=== PATIENT | female | born 1940 | race Caucasian/White ===

== ENCOUNTER 2016-07-09 13:29 | Inpatient (IN) | payer MEDICARE ==
[~2016-07-09] VITALS: Ht 154.9 cm; Wt 83.9 kg
[2016-07-10] MEDS ORDERED: CALC1TAB16 PO (09:44)
[2016-07-10] MEDS ORDERED: VITA10007 PO (09:44)
[2016-07-10] MEDS ORDERED: OMEG100010 PO (09:44)
[2016-07-10] MEDS ORDERED: FERR150C PO (09:44)
[2016-07-10] MEDS ORDERED: ATOR10TA15 PO (09:44)
[2016-07-29] MEDS ORDERED: SODIUM CHLORID 0.9% 500 ML IV SCH (11:00)
[2016-07-29] MEDS ORDERED: LACTATED RINGER'S 1000 ML IV SCH (11:00)
[2016-07-29 11:14] VITALS: BP 144/73; PULSE 60; RESP 20; TEMP 98.2; O2SAT 97
[2016-07-29] MEDS ORDERED: INSULIN HUMAN REGULAR 1,000 UNITS/10 ML VIAL SQ PRN (11:15)
[2016-07-29] MEDS ORDERED: VANCOMYCIN 1000 MG/NS 250 ML (for <70 kg) IV SCH ×2 (11:15)
[2016-07-29] MEDS ORDERED: METOPROLOL TARTRATE 25 MG TAB PO PRN (11:15)
[2016-07-29] MEDS ORDERED: POVIDONE IODINE 7.5% SCRUB 118 ML BOTTLE TOP SCH (11:15)
[2016-07-29] MEDS ORDERED: ceFAZolin 2 GM PREMIX 50 ML IV SCH (11:15)
[2016-07-29] MEDS ORDERED: DEXAMETHASONE SOD PHOS 20 MG/5 ML VIAL IV SCH (11:15)
[2016-07-29] MEDS ORDERED: MIDAZOLAM HCL 5 MG/5 ML VIAL ONE (11:43)
[2016-07-29] MEDS ORDERED: SODIUM CHLORIDE 0.9% IV SCH ×2 (12:00→16:00)
[2016-07-29] MEDS ORDERED: TRANEXAMIC ACID IV SCH ×2 (12:00→16:00)
[2016-07-29] MEDS ORDERED: ROPIVACAINE PERI-ARTICULAR INJECTION. PERIART SCH ×5 (12:00)
[2016-07-29] MEDS ORDERED: LACTATED RINGER'S 1000 ML INJ 1,000 ML IV ONE (12:55)
[2016-07-29] MEDS ORDERED: ePHEDrine/NS 25 MG/5 ML SYR IV ONE (12:55)
[2016-07-29] MEDS ORDERED: PROPOFOL 200 MG/20 ML AMP IV ONE (12:55)
[2016-07-29] MEDS: GENTAMICIN SULFATE 80 MG/2 ML VIAL ONE ×2 (13:15→13:28)
[2016-07-29] MEDS ORDERED: ACETAMINOPHEN 1000 MG/100 ML VIAL IV ONE (14:11)
--- NOTE | 2016-07-29 14:25 | PD.OP ---
cc: Souleymane Vergara MD Operative Report Date of Surgery: Jul 29, 2016 Preoperative Diagnosis: Right knee severe osteoarthritis Postoperative Diagnosis: Same Procedure: Right total knee arthroplasty Anesthesia: Spinal and adductor canal block Surgeon: Souleymane Vergara Tomb Maker Helper(s): BETH Ferrara The surgical procedure was assisted by my Advanced Registered Nurse Practitioner. My BALLASTER presence was necessary throughout this case for the manipulation and positioning of the surgical extremity. My BALLASTER was assisting me throughout the duration of this procedure. The skill set of an Advance Registered Nurse Practitioner was medically necessary to complete this procedure. During the surgical case, the surgical services asst was working at the back table and the Advance Registered Nurse Practitioner was directly assisting me. Operation and Findings: IMPLANTS: DePuy Attune: Patella: size 32. Femur, posterior stabilized size 5. Tibia, rotating platform size 4. Tibial insert, rotating platform, posterior stabilized size 8 mm thickness. ESTIMATED BLOOD LOSS: 150 cc TOURNIQUET TIME: 32 minutes at 250 mmHg pressure. JUSTIFICATION FOR PROCEDURE: The patient has end-stage osteoarthritis to the knee. There is an attached conservative measures pathway form in the chart that describes the nonoperative measures that were undertaken prior to consideration of surgical management. The patient understood the risks and benefits of surgical management. See my office notes for further details PROCEDURE: The patient was brought back to the operative theatre. Adequate anesthesia was obtained. The patient received intravenous vancomycin and Ancef. The lower extremity was prepped and draped in the usual sterile fashion.The leg was exsanguinated, the tourniquet was raised. A standard anterior incision was performed followed by medial parapatellar arthrotomy was performed. End-stage arthritis was identified. Osteotomy of the patella was performed. We drilled holes for the patella. We trialed the patella component. We placed an intramedullary guide into the distal femur. We ultimately resected 14 mm off of the distal femur in 5 degrees of valgus. The remnants of the ACL and PCL were resected. Osteotomy of the proximal tibia was performed, resecting 5 mm off of the medial side. This was done with 3 degrees of posterior slope using an extramedullary guide. The distal end of the guide was placed in the mid aspect of the ankle. The femur was sized, and four chamfer cuts were completed in 3 of external rotation. We then cut the central box in the distal femur to replace the PCL. We resected the remnants of the menisci and removed osteophytes off of the femur and tibia. We then trialed the knee. We punched the tibia for the keel, and then used standard technique to cement in components. Excess cement was removed. We trialed the knee again and the final polyethylene thickness was chosen to provide extension to 0 degrees, and flexion of 140 degrees to gravity. The ligaments were appropriately balanced. Lateral release was necessary to obtain excellent patellofemoral tracking. The tourniquet was released and adequate hemostasis was obtained. An intra- articular injection of a ropivacaine cocktail was injected. The posterior knee was inspected for excess cement, which was removed. The final polyethylene was put into position after thorough irrigation. We then closed deep fascia with a #2 Stratafix followed by skin with 2-0 Vicryl followed by kathy. Postop plan is to weight-bear as tolerated. DVT prophylaxis will be performed with Kevin, SCOOTER talbert, early mobilization, and Lovenox followed by aspirin. Souleymane Vergara MD Jul 29, 2016 14:25
[2016-07-29] MEDS ORDERED: ASPI325T PO (14:27)
[2016-07-29] MEDS ORDERED: ENOX40P SQ (14:27)
[2016-07-29] MEDS ORDERED: NORC5TAB PO (14:27)
[2016-07-29] MEDS ORDERED: ONDANSETRON HCL 4 MG/2 ML VIAL IVP PRN (14:30)
[2016-07-29] MEDS ORDERED: MAGNESIUM HYDROXIDE SUSP 30 ML CUP PO PRN (14:30)
[2016-07-29] MEDS ORDERED: NALOXONE HCL 0.4 MG/ML AMP IV PRN (14:30)
[2016-07-29] MEDS ORDERED: ACETAMINOPHEN/HYDROcodone 325 MG/5 MG TAB PO PRN (14:30)
[2016-07-29] MEDS ORDERED: ALUMINUM/MAGNESIUM/SIMETH 30 ML CUP PO PRN (14:30)
[2016-07-29] MEDS ORDERED: BISACODYL 10 MG SUPP PR PRN (14:30)
[2016-07-29] MEDS ORDERED: Post-op Orders (for Pharmacy) MISC XX ONE (14:30)
[2016-07-29] MEDS ORDERED: MORPHINE SULFATE 4 MG/ML INJ IV PUSH PRN (14:30)
[2016-07-29] MEDS ORDERED: SODIUM CHLORIDE 0.9% FLUSH 5 ML FLUSH IVF PRN (14:30)
[2016-07-29] MEDS ORDERED: diphenhydrAMINE HCL 50 MG/ML VIAL IV PRN (14:30)
[2016-07-29] MEDS ORDERED: BUPIVACAINE LIPOSOME PF 1.3% 20 ML VIAL ONE (14:43)
[2016-07-29] MEDS ORDERED: MIDAZOLAM HCL 2 MG/2 ML VIAL ONE (14:50)
[2016-07-29] MEDS ORDERED: *morphine SULFATE 8 MG/ML PERIprocedure ONLY ONE ×2 (14:52→15:05)
--- NOTE | 2016-07-29 15:09 | HHI.DCPOC ---
Discharge Care Plan Diagnosis: (1) Primary localized osteoarthrosis, lower leg (2) Status post total knee replacement, right Your Health Problems Are: Difficulty with ADL Goals to Promote Your Health * To prevent worsening of your condition and complications * To maintain your health at the optimal level Directions to Meet Your Goals Take your medications as prescribed Follow your dietary instruction Follow activity as directed Keep your appointments as scheduled Take your immunizations and boosters as scheduled If your symptoms worsen call your PCP, if no PCP go to Urgent Care Center or Emergency Room Smoking is Dangerous to Your Health. Avoid second hand smoke Call the 24-hour hour crisis hotline for domestic abuse at Chip Prieto Jul 29, 2016 15:09
--- NOTE | 2016-07-29 15:10 | HHI.FF ---
Face to Face Verification Diagnosis: (1) Primary localized osteoarthrosis, lower leg (2) Status post total knee replacement, right Physical Therapy Gait training, Transfer training, bed to chair Knee: Total knee Right LE Weight Bearing: WB as tolerated Right LE Range of Motion: Active ROM Nursing Nursing: Eugenia teaching, Dressing changes Dressing Changes: Daily dressing change I have seen patient Nathaly Anderson on 07/29/16. My clinical findings support the need for the requested home health care services because: Limited ability to care for self High risk of falls I certify that my clinical findings support that this patient is homebound because: Post-op weakness Unsteady gait/balance Chip Prieto Jul 29, 2016 15:10
[2016-07-29] MEDS ORDERED: COMMODE 3-IN-11 MIS (15:11)
[2016-07-29] MEDS ORDERED: CPMMACHINE (15:11)
[2016-07-29] MEDS ORDERED: WALKER WHEELS/F1 MIS (15:11)
[2016-07-29] MEDS ORDERED: DO NOT ADM ANY ANTICOAGULANT DRUGS XX PRN (15:30)
[2016-07-29] MEDS: SODIUM CHLOR 0.9% 1000 ML INJ 1,000 ML IV SCH ×2 (15:30→22:35)
[2016-07-29] MEDS ORDERED: *HYDROmorphone PF 1 MG VIAL PERIprocedural Use ONLY ONE (15:31)
--- NOTE | 2016-07-29 15:32 | RADRPT ---
EXAM DATE/TIME: 07/29/2016 14:54 [facility] COMPARISON: No previous studies available for comparison. INDICATIONS : Status post op right total knee arthroplasty. MEDICAL HISTORY : None. SURGICAL HISTORY : None. ENCOUNTER: Subsequent ACUITY: 1 day PAIN SCORE: Non-responsive. LOCATION: Left Knee FINDINGS: Right total knee arthroplasty is present. The hardware is intact. Alignment is anatomic. Skin kathy are noted ventrally. CONCLUSION: Satisfactory appearance post right TKA Deandre Lopez MD on July 29, 2016 at 15:30 Board Certified Radiologist. This report was verified electronically.
[2016-07-29] MEDS ORDERED: ENALAPRILAT 1.25 MG/ML VIAL IV PUSH PRN (16:30)
[2016-07-29] MEDS ORDERED: RESP: ALBUTEROL 2.5 MG/IPRATROPIUM 0.5 MG NEB (PRN) NEB (16:30)
--- NOTE | 2016-07-29 16:31 | PD.CONS ---
HPI Service [facility] Consult Requested By Orthopedic surgery Reason for Consult Medical management Primary Care Physician Roxana Varela MD Diagnoses: History of Present Illness 76 year-old female with a history of hyperlipidemia, severe right knee osteoarthritis who despite medical management and several cortisone shots to the knee continue to have severe right knee pain affecting her daily living of activity including ambulation, was taken to the operating room today and underwent Right total knee arthroplasty. Patient was seen in PACU, and during my exam denies any chest pain or shortness of breath. Vitals stable. Review of Systems Other 12 systems reviewed and are negative except for the one mentioned in the history of present illness Past Family Social History Allergies: Coded Allergies: Codeine (Verified Adverse Reaction, Severe, NAUSEA, 07/29/16) Past Medical History Severe right knee osteoarthritis Hyperlipidemia Past Surgical History Right total knee arthroplasty 07/29/16 Ruptured ovarian cyst LAP-BAND Right ankle/foot surgeries Reported Medications See EMR Family History Noncontributory Social History Denies any alcohol, tobacco and illicit drug intake Physical Exam Vital Signs Vital Signs Date Time Temp Pulse Resp B/P Pulse Ox O2 Delivery O2 Flow Rate FiO2 07/29/16 16:00 68 15 138/69 95 Nasal Cannula 2 07/29/16 15:45 67 15 135/68 97 Nasal Cannula 3 07/29/16 15:30 67 15 137/70 96 Nasal Cannula 3 07/29/16 15:15 69 15 144/68 98 Nasal Cannula 4 07/29/16 15:00 71 14 139/70 96 Nasal Cannula 4 07/29/16 14:45 97.5 70 14 137/68 95 Nasal Cannula 4 07/29/16 11:14 98.2 60 20 144/73 97 Physical Exam GENERAL: This is a well-nourished, well-developed patient, in no apparent distress. SKIN: No rashes, ecchymoses or lesions. Cool and dry. HEAD: Atraumatic. Normocephalic. No temporal or scalp tenderness. EYES: Pupils equal round and reactive. Extraocular motions intact. No scleral icterus. No injection or drainage. ENT: Nose without bleeding, purulent drainage or septal hematoma. Throat without erythema, tonsillar hypertrophy or exudate. Uvula midline. Airway patent. NECK: Trachea midline. No JVD or lymphadenopathy. Supple, nontender, no meningeal signs. CARDIOVASCULAR: Regular rate and rhythm without murmurs, gallops, or rubs. RESPIRATORY: Clear to auscultation. Breath sounds equal bilaterally. No wheezes , rales, or rhonchi. GASTROINTESTINAL: Abdomen soft, non-tender, nondistended. No hepato-splenomegaly , or palpable masses. No guarding. MUSCULOSKELETAL: Extremities without clubbing, cyanosis, or edema. Right knee repair, brace in place-neurovascular intact NEUROLOGICAL: Awake and alert. Cranial nerves II through XII intact. Motor and sensory grossly within normal limits. Five out of 5 muscle strength in all muscle groups. Normal speech. Laboratory Laboratory Tests Test 07/29/16 11:00 Blood Type A POSITIVE Antibody Screen NEGATIVE Blood Bank Comment Imaging Last Impressions Knee X-Ray 07/29/16 1422 Signed Impressions: Service Date/Time: Wednesday, July 29, 2016 14:54 - CONCLUSION: Satisfactory appearance post right TKA Deandre Lopez MD Assessment and Plan Assessment and Plan 76-year-old female with Right severe knee osteoarthritis: Status post Right total knee arthroplasty , management per orthopedic surgery and continue current postop care including IV antibiotics, pain management. PT consult to treat and eval. Lovenox for DVT prophylaxis Hyperlipidemia: Resume Lipitor DVT prophylaxis: Lovenox Thank you for this consultation Code Status Full code Discussed Condition With Patient Zhen Armstrong MD Jul 29, 2016 16:31
[2016-07-29 17:42] VITALS: BP 131/65; PULSE 76; RESP 17; TEMP 95.5; O2SAT 98
[2016-07-29 20:09] VITALS: BP 113/55; PULSE 71; RESP 18; TEMP 96; O2SAT 94
[2016-07-29] MEDS: SODIUM CHLORIDE 0.9% FLUSH 5 ML FLUSH IVF SCH (20:36)
[2016-07-29] MEDS ORDERED: ZOLPIDEM TARTRATE 5 MG TAB PO PRN (21:00)
[2016-07-29] MEDS ORDERED: ATORVASTATIN 10 MG TAB PO SCH (21:00)
[2016-07-29] MEDS: ACETAMINOPHEN/HYDROcodone 325 MG/5 MG TAB PO PRN (22:48)
[2016-07-30 00:08] VITALS: BP 103/50; PULSE 72; RESP 17; TEMP 97.5; O2SAT 96
[2016-07-30 04:07] VITALS: BP 102/58; PULSE 62; RESP 17; TEMP 97; O2SAT 95
[2016-07-30] MEDS: ACETAMINOPHEN/HYDROcodone 325 MG/5 MG TAB PO PRN ×3 (05:35→15:58)
[2016-07-30 07:02] LABS: HEMATOCRIT 36.2 % (35.0-46.0); MEAN CELL VOLUME 96.3 FL (80.0-100.0); MEAN CORPUSCULAR HEMOGLOBIN 32.7 PG (27.0-34.0); MEAN CORPUSCULAR HGB CONC 33.9 % (32.0-36.0); PLATELET COUNT 209 TH/MM3 (150-450); RED BLOOD COUNT 3.76 MIL/MM3 (4.00-5.30); RED CELL DISTRIBUTION WIDTH 13.1 % (11.6-17.2); REVIEW FLAG FINAL; WHITE BLOOD COUNT 10.7 TH/MM3 (4.0-11.0)
[2016-07-30 07:26] LABS: BICARBONATE 25.4 MEQ/L (21.0-32.0); POTASSIUM 3.9 MEQ/L (3.5-5.1)
[2016-07-30] MEDS ORDERED: DEXAMETHASONE SOD PHOS 20 MG/5 ML VIAL IV ONE (07:45)
[2016-07-30 08:00] VITALS: BP 103/55; PULSE 52; RESP 18; TEMP 97.5; O2SAT 94
[2016-07-30] MEDS: SODIUM CHLORIDE 0.9% FLUSH 5 ML FLUSH IVF SCH (09:00)
[2016-07-30 12:00] VITALS: BP 136/63; PULSE 62; RESP 20; TEMP 97.8; O2SAT 95
--- NOTE | 2016-07-30 12:50 | PD.ORT.PN ---
Subjective Post Op Day #: 1 Subjective Remarks The patient is OOB in chair with little to no pain to the knee. Patient is voiding and ambulatory. Patient requesting to go home today. Objective Vitals Vital Signs Date Time Temp Pulse Resp B/P Pulse Ox O2 Delivery O2 Flow Rate FiO2 07/30/16 08:00 97.5 52 18 103/55 94 07/30/16 04:07 97.0 62 17 102/58 95 07/30/16 00:08 97.5 72 17 103/50 96 07/29/16 23:48 20 07/29/16 20:09 96.0 71 18 113/55 94 07/29/16 17:42 95.5 76 17 131/65 98 07/29/16 17:15 97.6 70 16 140/75 95 Room Air 07/29/16 17:00 69 16 139/72 94 Room Air 07/29/16 16:45 68 15 138/75 93 Room Air 07/29/16 16:30 71 15 143/74 98 Nasal Cannula 2 07/29/16 16:15 70 15 141/72 97 Nasal Cannula 2 07/29/16 16:00 68 15 138/69 95 Nasal Cannula 2 07/29/16 15:45 67 15 135/68 97 Nasal Cannula 3 07/29/16 15:30 67 15 137/70 96 Nasal Cannula 3 07/29/16 15:15 69 15 144/68 98 Nasal Cannula 4 07/29/16 15:00 71 14 139/70 96 Nasal Cannula 4 07/29/16 14:45 97.5 70 14 137/68 95 Nasal Cannula 4 I/O 07/29/16 07/29/16 07/29/16 07/30/16 07/30/16 07/30/16 07:00 15:00 23:00 07:00 15:00 23:00 Intake Total 1200 ml 560 ml 1648 ml Output Total 1000 ml 550 ml 700 ml Balance 200 ml 10 ml 948 ml Intake Oral 360 ml 360 ml IV Total 200 ml 1288 ml Other 1200 ml Output Urine Total 800 ml 550 ml 700 ml Estimated Blood Loss 200 ml # Bowel Movements 0 0 Result Diagram: 07/30/16 0617 07/30/16 0617 Imaging Last 24 hours Impressions Knee X-Ray 07/29/16 1422 Signed Impressions: Service Date/Time: Friday, July 29, 2016 14:54 - CONCLUSION: Satisfactory appearance post right TKA Deandre Lopez MD Procedures Right TKA Objective Remarks The patient's dressing was changed with scant serosanguineous drainage. Incision is well approximated with surgical clips intact. No redness or s/s of infection. No calf tenderness or swelling. + SILT. EHL/TA/G intact. 2+ pedal pulse. Assessment & Plan Ortho Post Op Day #: 1 Problem List: Assessment and Plan POD #1: Right TKA 1. WBAT RLE 2. Lovenox for DVT prophylaxis 3. Ice to the right knee PRN 4. Stable for discharge home with home health today. Chip Prieto Jul 30, 2016 12:50
--- NOTE | 2016-07-30 12:52 | HHI.PR ---
Subjective Remarks Patient seen and examined No acute event overnight Reports significant improvement of right knee pain Looking forward discharge home possible today Objective Vitals Vital Signs Date Time Temp Pulse Resp B/P Pulse Ox O2 Delivery O2 Flow Rate FiO2 07/30/16 12:00 97.8 62 20 136/63 95 07/30/16 08:00 97.5 52 18 103/55 94 07/30/16 04:07 97.0 62 17 102/58 95 07/30/16 00:08 97.5 72 17 103/50 96 07/29/16 23:48 20 07/29/16 20:09 96.0 71 18 113/55 94 07/29/16 17:42 95.5 76 17 131/65 98 07/29/16 17:15 97.6 70 16 140/75 95 Room Air 07/29/16 17:00 69 16 139/72 94 Room Air 07/29/16 16:45 68 15 138/75 93 Room Air 07/29/16 16:30 71 15 143/74 98 Nasal Cannula 2 07/29/16 16:15 70 15 141/72 97 Nasal Cannula 2 07/29/16 16:00 68 15 138/69 95 Nasal Cannula 2 07/29/16 15:45 67 15 135/68 97 Nasal Cannula 3 07/29/16 15:30 67 15 137/70 96 Nasal Cannula 3 07/29/16 15:15 69 15 144/68 98 Nasal Cannula 4 07/29/16 15:00 71 14 139/70 96 Nasal Cannula 4 07/29/16 14:45 97.5 70 14 137/68 95 Nasal Cannula 4 I/O 07/29/16 07/29/16 07/29/16 07/30/16 07/30/16 07/30/16 07:00 15:00 23:00 07:00 15:00 23:00 Intake Total 1200 ml 560 ml 1648 ml Output Total 1000 ml 550 ml 700 ml Balance 200 ml 10 ml 948 ml Intake Oral 360 ml 360 ml IV Total 200 ml 1288 ml Other 1200 ml Output Urine Total 800 ml 550 ml 700 ml Estimated Blood Loss 200 ml # Bowel Movements 0 0 Result Diagram: 07/30/16 0617 07/30/16 0617 Imaging Last Impressions Knee X-Ray 07/29/16 1422 Signed Impressions: Service Date/Time: Friday, July 29, 2016 14:54 - CONCLUSION: Satisfactory appearance post right TKA Deandre Lopez MD Objective Remarks GENERAL: NAD and sitting in a chair SKIN: Warm and dry. HEAD: Normocephalic. EYES: No scleral icterus. No injection or drainage. NECK: Supple, trachea midline. No JVD or lymphadenopathy. CARDIOVASCULAR: Regular rate and rhythm without murmurs, gallops, or rubs. RESPIRATORY: Breath sounds equal bilaterally. No accessory muscle use. GASTROINTESTINAL: Abdomen soft, non-tender, nondistended. MUSCULOSKELETAL: No cyanosis, or edema. Right knee repair, dressing in place- neurovascular intact BACK: Nontender without obvious deformity. No CVA tenderness. A/P Assessment and Plan 76-year-old female with Right severe knee osteoarthritis: Status post Right total knee arthroplasty , management per orthopedic surgery and continue current postop care including pain management. PT consult to treat and eval. Lovenox for DVT prophylaxis Hyperlipidemia: on Lipitor DVT prophylaxis: Lovenox Discharge Planning Discharge per orthopedic surgery Zhen Armstrong MD Jul 30, 2016 12:52
[2016-07-30] MEDS ORDERED: ENOX40P SQ (13:02)
[2016-07-30 13:17] VITALS: O2SAT 97
[2016-07-30] MEDS ORDERED: ENOXAPARIN SODIUM 40 MG/0.4 ML SYRINGE SQ SCH (14:00)
[2016-07-30] MEDS ORDERED: MULTIVITAMINS/MINERALS THERAPEUTIC TAB PO SCH (21:00)
[2016-07-30] MEDS ORDERED: DOCUSATE SODIUM 100 MG CAP PO SCH (21:00)
--- NOTE | 2016-08-02 21:17 | HHI.DS ---
Discharge Summary Admission Date Jul 29, 2016 at 10:21 Discharge Date: Jul 30, 2016 Admitting Diagnosis Primary localized OA, lower leg Status post total knee replacement, right Diagnosis: (1) Primary localized osteoarthrosis, lower leg Diagnosis: Principal (2) Status post total knee replacement, right Diagnosis: Principal Procedures Right TKA Brief History This is a 76 year old female patient with severe OA of the right knee CBC/BMP: 07/30/16 0617 07/30/16 0617 PE at Discharge The patient's dressing was changed with scant serosanguineous drainage. Incision is well approximated with surgical clips intact. No redness or s/s of infection. No calf tenderness or swelling. + SILT. EHL/TA/G intact. 2+ pedal pulse. Hospital Course The patient was admitted to the hospital for severe OA of the right knee to have a right total knee arthroplasty. The patient's surgery went well without complication. The patient had good pain management with oral medication. The patient was WBAT. The patient tolerated a normal diet. The patient was discharged home with home health and will f/u with Dr. Vergara in 1-2 weeks. Pt Condition on Discharge: Stable Discharge Disposition: Disch w/ Home Health Serv Discharge Instructions Diet Instructions: As Tolerated, No Restrictions Activities You Can Perform: Weight Bearing as Ailyn Activities to Avoid: Strenuous Activity Follow up Referrals: Orthopedics with Souleymane Vergara MD SN[facility]/ with Nurse oncology pharmacist [phone] New Medications: Commode 3-in-1 (Commode 3-in-1) 1 Mis Mis 1 EA .ROUTE DIRECTED #1 Ref 0 EA CPM-Continuous Passive Motion Machine (CPM-Continuous Passive Motion Machine) 1 Ea Device 1 EA .ROUTE DIRECTED #1 Ref 0 EA Enoxaparin Inj (Lovenox Inj) 40 Mg/0.4 Ml Syr 40 MG SQ DAILY Blood Clot Prevention #21 Ref 0 SYRINGE Hydrocodone-Acetaminophen ([place]) 5-325 mg Tab 1-2 TAB PO Q4H PRN PAIN #60 Ref 0 TAB Walker with Front Wheels (Walker with Front Wheels) 1 Mis Mis 1 EA .ROUTE DIRECTED #1 Ref 0 EA Continued Medications: Ascorbic Acid (Vitamin C) 1,000 Mg Tab 1000 MG PO DAILY Nutritional Supplement Ref 0 TAB Atorvastatin (Atorvastatin) 10 Mg Tab 10 MG PO HS Cholesterol Management #30 Ref 0 TAB Calcium Citrate-Vitamin D (Calcium Citrate-Vitamin D) 315-200 Mg-Unit Tab 2 TAB PO TID Calcium Supplement Ref 0 TAB Polysaccharide Iron Complex (Ferrex 150) 150 Mg Cap 1 CAP PO MO,WE,FR Discontinued Medications: [place]-3 Fatty Acids ([place] 3 1000 mg) 1 Cap Cap 1 CAP PO BID Chip Prieto Aug 02, 2016 21:17
== END 2016-07-30 16:19 | disposition home health service (06) | DRG 470 ==
LOC: HSDI 07-29 10:21 → N06B 07-29 17:37
PROVIDERS: ADMIT Orthopaedic Surgery; ATTEND Orthopaedic Surgery
PROC: 3E0T3CZ (ICD-10-PCS; 2016-07-29)
PROC: 0SRC0J9 Replacement of Right Knee Joint with Synthetic Substitute, Cemented, Open Approach (ICD-10-PCS; principal; 2016-07-29 12:23)
DX: M17.11 Unilateral primary osteoarthritis, right knee (principal); E78.5 Hyperlipidemia, unspecified
CPT/HCPCS: 73560; 80048; 85027; 86850; 86900; 86901; 94150; C1776; C9290; J0131; J0171; J0690; J0735; J1100; J1170; J1580; J1650; J1885; J2250; J2270; J2795; J3370; J7030; J7050; J7120; L1830

== ENCOUNTER → 2016-07-10 | Outpatient (CLI) | payer MEDICARE ==
[~2016-07-10] MED LIST: ASPI325T PO; ATOR10TA15 PO; CALC1TAB16 PO; COMMODE 3-IN-11 MIS; CPMMACHINE; ENOX40P SQ; FERR150C PO; NORC5TAB PO; OMEG100010 PO; PROT40TA PO; VITA10007 PO; WALKER WHEELS/F1 MIS
[2016-07-10 09:54] LABS: AUTOMATED NEUTROPHIL # 2.3 TH/MM3 (1.8-7.7); BASOPHIL # 0.1 TH/MM3 (0-0.2); BASOPHIL % 1.8 % (0.0-2.0); EOSINOPHIL # 0.1 TH/MM3 (0-0.4); EOSINOPHIL % 2.3 % (0.0-4.0); HEMATOCRIT 43.3 % (35.0-46.0); HEMO FLAGS DIFF FINAL; LYMPH % 43.6 % (9.0-44.0); LYMPHOCYTE # 2.3 TH/MM3 (1.0-4.8); MEAN CELL VOLUME 96.7 FL (80.0-100.0); MEAN CORPUSCULAR HEMOGLOBIN 32.7 PG (27.0-34.0); MEAN CORPUSCULAR HGB CONC 33.8 % (32.0-36.0); MONO % 9.1 % (0.0-8.0); NEUT % 43.2 % (16.0-70.0); PLATELET COUNT 247 TH/MM3 (150-450); RED BLOOD COUNT 4.48 MIL/MM3 (4.00-5.30); RED CELL DISTRIBUTION WIDTH 13.4 % (11.6-17.2); WHITE BLOOD COUNT 5.3 TH/MM3 (4.0-11.0)
[2016-07-10 10:03] LABS: APTT (PATIENT) 26.8 SEC (24.3-30.1); PROTHROMBIN TIME - PATIENT 11.5 SEC (9.8-11.6)
[2016-07-10 10:21] LABS: ALKALINE PHOSPHATASE 72 U/L (45-117); ALT (GPT) 30 U/L (10-53); ANION GAP 7 MEQ/L (5-15); AST (GOT) 27 U/L (15-37); BLOOD UREA NITROGEN 17 MG/DL (7-18); CHLORIDE 105 MEQ/L (98-107); GLOMERULAR FILTRATION RATE 71 ML/MIN (>89); GLUCOSE,FASTING 88 MG/DL (74-99); POTASSIUM 4.1 MEQ/L (3.5-5.1); SODIUM (NA) 141 MEQ/L (136-145); TOTAL BILIRUBIN ADULT 0.5 MG/DL (0.2-1.0)
[2016-07-10 10:37] LABS: WESTERGREN SEDIMENTATION RATE 9 mm/hr (0-30)
--- NOTE | 2016-07-10 11:41 | RADRPT ---
EXAM DATE/TIME: 07/10/2016 11:23 [facility] COMPARISON: No previous studies available for comparison. INDICATIONS : Evaluate for pneumonia, pneumothorax or communicable disease. Pre op right knee replacement. MEDICAL HISTORY : None. SURGICAL HISTORY : None. ENCOUNTER: Initial ACUITY: 1 day PAIN SCORE: 0/10 LOCATION: Bilateral chest FINDINGS: PA and lateral views of the chest. Opacity in the anterior lung base on the lateral view. May represe nt atelectasis but pulmonary nodules also in the differential diagnosis. No evidence of pleural effus ion or pneumothorax. Cardiomediastinal silhouette within normal limits. CONCLUSION: Focal opacity in the anterior lung base on the lateral view. Recommend noncontrast chest CT to evaluate for pulmonary nodule. No other acute cardiopulmonary disease identified. Rambo Hernandez MD on July 10, 2016 at 11:35 Board Certified Radiologist. This report was verified electronically.
[2016-07-10 13:46] LABS: BACTERIA, URINE RARE /hpf; BLOOD, URINE NEG (NEG); GLUCOSE,URINE NEG (NEG); KETONE, URINE NEG (NEG); MUCUS URINE FEW /lpf (OCC); NITRITE,URINE NEG (NEG); PH, URINE 5.5 (5.0-8.5); SQUAMOUS EPITHELIAL CELL URINE 5 /hpf (0-5); TRANSITIONAL EPI CELLS, URINE 1 /hpf; URINE COLOR LIGHT-YELLOW (YELLW/STRAW)
[2016-07-10 13:47] LABS: COMMENT (UR) CULT NOT INDICATED; CULTURE IF INDICATED CULT NOT INDICATED
--- NOTE | 2016-07-12 11:47 | EKG ---
Date Performed: 07/10/2016 Time Performed: 09:31:42 PTAGE: 76 years EKG: Sinus rhythm WITH FIRST DEGREE AV BLOCK WITH OCCASIONAL VENTRICULAR PREMATURE COMPLEXES INTRAVENTRICULAR CONDUCTI ON DELAY MODERATE VOLTAGE CRITERIA FOR LVH, CONSIDER NORMAL VARIANT POSSIBLE SEPTAL MYOCARDIAL INFARC TION, OF INDETERMINATE AGE POSSIBLE LATERAL MYOCARDIAL INFARCTION, PROBABLY OLD ABNORMAL ECG NO PREVIOUS TRACING DOCTOR: Anu Pitts Interpretating Date/Time 07/12/2016 11:45:35
== END ==
LOC: CPRE 08:58
PROVIDERS: ATTEND Orthopaedic Surgery
DX: Z01.812 Encounter for preprocedural laboratory examination (principal); Z01.810 Encounter for preprocedural cardiovascular examination; M79.609 Pain in unspecified limb; M25.50 Pain in unspecified joint; I44.0 Atrioventricular block, first degree; I49.3 Ventricular premature depolarization
CPT/HCPCS: 36415; 71020; 80053; 81001; 85025; 85610; 85652; 85730; 93005

== ENCOUNTER 2016-08-17 18:57 | Observation (INO) | payer MEDICARE ==
[~2016-08-17] VITALS: Ht 154.9 cm; Wt 78.0 kg
[~2016-08-17 18:57] MED LIST changes: -ASPI325T PO; -OMEG100010 PO; -PROT40TA PO
[2016-08-17 19:25] VITALS: BP 140/88; PULSE 72; RESP 18; TEMP 97.3; O2SAT 99
[2016-08-17 20:04] VITALS: BP 122/70; PULSE 84; RESP 18; O2SAT 96
[2016-08-17 20:32] LABS: AUTOMATED NEUTROPHIL # 5.9 TH/MM3 (1.8-7.7); BASOPHIL # 0.1 TH/MM3 (0-0.2); BASOPHIL % 0.9 % (0.0-2.0); EOSINOPHIL # 0.2 TH/MM3 (0-0.4); EOSINOPHIL % 2.8 % (0.0-4.0); HEMATOCRIT 33.2 % (35.0-46.0); HEMO FLAGS DIFF FINAL; LYMPH % 15.9 % (9.0-44.0); LYMPHOCYTE # 1.3 TH/MM3 (1.0-4.8); MEAN CELL VOLUME 98.6 FL (80.0-100.0); MEAN CORPUSCULAR HEMOGLOBIN 29.7 PG (27.0-34.0); MEAN CORPUSCULAR HGB CONC 30.1 % (32.0-36.0); MONO % 6.3 % (0.0-8.0); NEUT % 74.1 % (16.0-70.0); PLATELET COUNT 355 TH/MM3 (150-450); RED BLOOD COUNT 3.37 MIL/MM3 (4.00-5.30); RED CELL DISTRIBUTION WIDTH 14.3 % (11.6-17.2); WHITE BLOOD COUNT 7.9 TH/MM3 (4.0-11.0)
[2016-08-17] MEDS ORDERED: SODIUM CHLOR 0.9% 1000 ML INJ 1,000 ML IV SCH ×2 (20:33→22:26)
--- NOTE | 2016-08-17 20:34 | PD ---
HPI Chief Complaint: GI Complaint Time Seen by Provider: 20:34 Travel History International Travel<30 days: No Contact w/Intl Traveler<30days: No Traveled to known affect area: No History of Present Illness HPI 76-year-old female with no significant medical history presents to the emergency department for evaluation. Patient had a total right knee replacement by Dr. Vergara in July. She has been on Lovenox since then. She states she has had no complications. Mild soreness of the right knee. However today she had 3 episodes of vomiting which she states appeared to be blood. She had the third episode was more maroon in color but when she wiped it was read like blood. Patient states she has been taking pain medication since surgery and has been constipated. Denies any black tarry stools. Last colonoscopy was in 2014 without any acute abnormality identified. Denies any recent illnesses, fever, chills. No significant pain. Patient has been tired. No other symptoms to report. PFSH Past Medical History Cancer: Yes (LEFT BREAST CANCER, LUMPECTOMY) Cardiovascular Problems: No Diabetes: No Endocrine: No Genitourinary: No Hepatitis: No Hiatal Hernia: No Immune Disorder: No Implanted Vascular Access Dvce: Yes Musculoskeletal: Yes (OSTEOARTRITIS, bilat knee pain) Neurologic: No Psychiatric: No Reproductive: No Respiratory: No Thyroid Disease: No Tetanus Vaccination: Unknown Past Surgical History Abdominal Surgery: Yes (GASTRIC BYPASS, UMBILICAL HERNIA REPAIR) AICD: No Body Medical Devices: 1PIN IN RIGHT FOOT AND SCREW TO BASE OF BIG TOE Cardiac Surgery: No Ear Surgery: No Endocrine Surgery: No Eye Surgery: No Genitourinary Surgery: No Gynecologic Surgery: Yes (EXP LAP FOR RUPTURED OVARIAN CYST) Joint Replacement: No Oral Surgery: No Pacemaker: No Thoracic Surgery: Yes (LEFT LUMPECTOMY) Other Surgery: Yes Social History Alcohol Use: No Tobacco Use: No Substance Use: No Allergies-Medications (Allergen,Severity, Reaction): Coded Allergies: Aspirin (Verified Allergy, Unknown, 08/17/16) Codeine (Verified Adverse Reaction, Severe, NAUSEA, 08/17/16) Reported Meds & Prescriptions Reported Meds & Active Scripts Active CPM-Continuous Passive Motion Machine 1 Ea Device 1 Ea .ROUTE DIRECTED Commode 3-in-1 (Device) 1 Mis Mis 1 Ea .ROUTE DIRECTED [place] (Hydrocodone-Acetaminophen) 5-325 mg Tab 1-2 Tab PO Q4H PRN Reported Vitamin C (Ascorbic Acid) 1,000 Mg Tab 1,000 Mg PO DAILY Ferrex 150 (Polysaccharide Iron Complex) 150 Mg Cap 1 Cap PO MO,WE,FR Calcium Citrate-Vitamin D 315-200 Mg-Unit Tab 2 Tab PO TID Atorvastatin (Atorvastatin Calcium) 10 Mg Tab 10 Mg PO HS Review of Systems Except as stated in HPI: all other systems reviewed are Neg Physical Exam Narrative GENERAL: Well-nourished female patient, in no acute distress SKIN: Warm and dry. Slightly pallor HEAD: Atraumatic. Normocephalic. EYES: Pupils equal and round. No scleral icterus. No injection or drainage. ENT: No nasal bleeding or discharge. Mucous membranes pink and moist. NECK: Trachea midline. No JVD. CARDIOVASCULAR: Regular rate and rhythm. No murmur appreciated. RESPIRATORY: No accessory muscle use. Clear to auscultation. Breath sounds equal bilaterally. GASTROINTESTINAL: Abdomen soft, nondistended. Epigastric tenderness to palpation. Hepatic and splenic margins not palpable. RECTAL EXAM: No masses or tenderness, stool is brown. MUSCULOSKELETAL: No obvious deformities. No clubbing. No cyanosis. Edema to the right knee. No erythema. NEUROLOGICAL: Awake and alert. No obvious cranial nerve deficits. Motor grossly within normal limits. Normal speech. PSYCHIATRIC: Appropriate mood and affect; insight and judgment normal. Data Data Last Documented VS Orders Complete Blood Count With Diff (08/17/16 19:38) Comprehensive Metabolic Panel (08/17/16 19:38) Iv Access Insert/Monitor (08/17/16 19:38) Lipase (08/17/16 19:38) Prothrombin Time / Inr (Pt) (08/17/16 20:33) Act Partial Throm Time (Ptt) (08/17/16 20:33) Urinalysis - C+S If Indicated (08/17/16 20:33) Type And Screen (08/17/16 20:33) Abdomen, Flat & Upright (08/17/16 20:33) Ecg Monitoring (08/17/16 20:33) Oximetry (08/17/16 20:33) Pantoprazole Inj (Protonix Inj) (08/17/16 20:45) Sodium Chlor 0.9% 1000 Ml Inj (Ns 1000 M (08/17/16 20:33) Sodium Chloride 0.9% Flush (Ns Flush) (08/17/16 20:45) Admit Order (Ed Use Only) (08/17/16 22:23) Labs MDM Medical Decision Making Medical Screen Exam Complete: Yes Emergency Medical Condition: Yes Medical Record Reviewed: Yes Differential Diagnosis GI bleed upper versus lower versus esophageal varices versus gastritis Narrative Course 76-year-old female presents to emergency department for evaluation of hematemesis. Patient appears without distress. She does have epigastric tenderness to palpation. Heme a prompt is positive. CBC is with mild anemia with a hemoglobin of 10. CMP is without acute concern. INR is 1.1. Urinalysis is pending. I discussed the patient with Dr. Pace. [facility] HemaPrompt Point of Care Internal Pos. & Neg. Controls: Passed Fecal Specimen Occult Blood: Positive Diagnosis Primary Impression: GI bleed Qualified Code: K92.2 - Gastrointestinal hemorrhage, unspecified gastrointestinal hemorrhage type Admitting Information Admitting Physician Requests: Observation Scripts Pantoprazole (Protonix)40 Mg Tab40 Mg PO DAILY #30 TAB Ref 0 Prov:Alexis Ansari 08/18/16 Condition: Stable Roxana Mueller Aug 17, 2016 20:34 Platelet Count 355 TH/MM3 Mean Platelet Volume 7.6 FL Neutrophils (%) (Auto) 74.1 % Lymphocytes (%) (Auto) 15.9 % Monocytes (%) (Auto) 6.3 % Eosinophils (%) (Auto) 2.8 % Basophils (%) (Auto) 0.9 % Neutrophils # (Auto) 5.9 TH/MM3 Lymphocytes # (Auto) 1.3 TH/MM3 Monocytes # (Auto) 0.5 TH/MM3 Eosinophils # (Auto) 0.2 TH/MM3 Basophils # (Auto) 0.1 TH/MM3 CBC Comment DIFF FINAL Differential Comment Sodium Level 141 MEQ/L Potassium Level 4.9 MEQ/L Chloride Level 108 MEQ/L Carbon Dioxide Level 25.9 MEQ/L Anion Gap 7 MEQ/L Blood Urea Nitrogen 26 MG/DL Creatinine 0.66 MG/DL Estimat Glomerular Filtration 87 ML/MIN Rate Random Glucose 114 MG/DL Calcium Level 8.7 MG/DL Total Bilirubin 0.4 MG/DL Aspartate Amino Transf 56 U/L (AST/SGOT) Alanine Aminotransferase 27 U/L (ALT/SGPT) Alkaline Phosphatase 59 U/L Total Protein 6.3 GM/DL Albumin 2.7 GM/DL Lipase 53 U/L Prothrombin Time 12.1 SEC Prothromb Time International 1.1 RATIO Ratio Activated Partial 27.1 SEC Thromboplast Time Blood Type A POSITIVE Antibody Screen NEGATIVE MDM Medical Decision Making Medical Screen Exam Complete: Yes Emergency Medical Condition: Yes Medical Record Reviewed: Yes Differential Diagnosis GI bleed upper versus lower versus esophageal varices versus gastritis Narrative Course 76-year-old female presents to emergency department for evaluation of hematemesis. Patient appears without distress. She does have epigastric tenderness to palpation. Heme a prompt is positive. CBC is with mild anemia with a hemoglobin of 10. CMP is without acute concern. INR is 1.1. Urinalysis is pending. I discussed the patient with Dr. Pace. [facility] HemaPrompt Point of Care Internal Pos. & Neg. Controls: Passed Fecal Specimen Occult Blood: Positive Diagnosis Primary Impression: GI bleed Qualified Code: K92.2 - Gastrointestinal hemorrhage, unspecified gastrointestinal hemorrhage type Admitting Information Admitting Physician Requests: Observation Condition: Stable Roxana Mueller Aug 17, 2016 20:34
[2016-08-17] MEDS ORDERED: PANTOPRAZOLE SODIUM 40 MG VIAL IVP ONE (20:45)
[2016-08-17] MEDS: SODIUM CHLORIDE 0.9% FLUSH 5 ML FLUSH IVF PRN (20:57)
[2016-08-17 21:02] LABS: ALKALINE PHOSPHATASE 59 U/L (45-117); ALT (GPT) 27 U/L (10-53); ANION GAP 7 MEQ/L (5-15); AST (GOT) 56 U/L (15-37); BICARBONATE 25.9 MEQ/L (21.0-32.0); BLOOD UREA NITROGEN 26 MG/DL (7-18); CHLORIDE 108 MEQ/L (98-107); GLOMERULAR FILTRATION RATE 87 ML/MIN (>89); SODIUM (NA) 141 MEQ/L (136-145); TOTAL BILIRUBIN ADULT 0.4 MG/DL (0.2-1.0)
[2016-08-17 21:03] LABS: POTASSIUM 4.9 MEQ/L (3.5-5.1)
--- NOTE | 2016-08-17 21:40 | RADRPT ---
EXAM DATE/TIME: 08/17/2016 21:10 [place] COMPARISON: No previous studies available for comparison. INDICATIONS : Vomiting blood and abdominal pain. MEDICAL HISTORY : None. SURGICAL HISTORY : Umbilical hernia repair. Appendectomy. ENCOUNTER: Initial ACUITY: 1 day PAIN SCORE: 3/10 LOCATION: Bilateral middle abdomen. FINDINGS: Supine and upright views of the abdomen were performed. The abdominal bowel gas pattern is normal. No air fluid levels are seen. Anastomotic kathy are noted in the left midabdomen. No abnormal sadie s, calcifications, or organomegaly is seen. The visualized lower lungs are clear. No evidence of fr ee intraperitoneal gas. The osseous structures are unremarkable. CONCLUSION: Unremarkable bowel gas pattern. Lico Alex MD on August 17, 2016 at 21:38 Board Certified Radiologist. This report was verified electronically.
[2016-08-17 21:49] LABS: APTT (PATIENT) 27.1 SEC (24.3-30.1); INTERNATIONAL NORMALIZED RATIO 1.1 RATIO; PROTHROMBIN TIME - PATIENT 12.1 SEC (9.8-11.6)
[2016-08-17] MEDS ORDERED: ONDANSETRON HCL 4 MG/2 ML VIAL IVP PRN (22:30)
[2016-08-17] MEDS ORDERED: NALOXONE HCL 0.4 MG/ML AMP IV PRN (22:30)
[2016-08-17] MEDS ORDERED: ACETAMINOPHEN 325 MG TAB PO PRN (22:30)
[2016-08-17] MEDS ORDERED: MAGNESIUM HYDROXIDE SUSP 30 ML CUP PO PRN (22:30)
[2016-08-17 23:11] LABS: BLOOD, URINE NEG (NEG); COMMENT (UR) CULT NOT INDICATED; CULTURE IF INDICATED CULT NOT INDICATED; GLUCOSE,URINE NEG (NEG); KETONE, URINE 10 mg/dL (NEG); MUCUS URINE FEW /lpf (OCC); NITRITE,URINE NEG (NEG); SQUAMOUS EPITHELIAL CELL URINE 2 /hpf (0-5); TRANSITIONAL EPI CELLS, URINE 1 /hpf; URINE COLOR YELLOW (YELLW/STRAW)
[2016-08-18] VITALS (7 sets, daily range): BP systolic 112–128; BP diastolic 56–68; PULSE 72–85; RESP 16–20; TEMP 97.9–98.6; O2SAT 95–98
--- NOTE | 2016-08-18 04:16 | HHI.HP ---
[facility] Roxana Varela MD Admission Diagnosis GI bleed Diagnoses: (1) GI bleed Diagnosis: Principal (2) Hyperlipidemia (3) Anemia Chief Complaint: Hematemesis Travel History International Travel<30 Days: No Contact w/Intl Traveler <30 Da: No Traveled to Known Affected Are: No History of Present Illness The patient is a 76-year-old female who presented to the emergency department with complaint of vomiting blood. She had 3 episodes of hematemesis yesterday. She has never had similar episodes before. She denies abdominal pain. Did have some nausea, but that has improved with Zofran. She had right knee replacement surgery 3 weeks ago and is still on Lovenox for DVT prophylaxis. She denies chest pain, dyspnea. 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 She does see GI in [place]. Review of Systems Constitutional: DENIES: Fever, Chills, Night Sweats Eyes: DENIES: Blurred vision, Vision loss Ears, nose, mouth, throat: DENIES: Hearing loss Respiratory: DENIES: Cough, Wheezing, Sputum production, Shortness of breath Cardiovascular: DENIES: Chest pain, Palpitations, Dyspnea on Exertion, Lower Extremity Edema Gastrointestinal: COMPLAINS OF: Vomiting, DENIES: Abdominal pain, Bloody stools, Constipation, Diarrhea, Nausea Genitourinary: DENIES: Urinary frequency, Urinary incontinence, Urgency, Hematuria, Dysuria, Nocturia Musculoskeletal: COMPLAINS OF: Joint pain (right knee), DENIES: Muscle aches Integumentary: DENIES: Pruritus, Rash Hematologic/lymphatic: DENIES: Bruising Neurologic: DENIES: Headache Past Family Social History Past Medical History Osteoarthritis Hyperlipidemia History of breast cancer Obesity Past Surgical History Gastric bypass Umbilical hernia repair Right foot surgery Exploratory laparotomy for ruptured ovarian cyst Left breast lumpectomy Right total knee replacement, July 2016 Reported Medications Lovenox Inj (Enoxaparin Sodium) 40 Mg/0.4 Ml Syr 40 Mg SQ DAILY CPM-Continuous Passive Motion Machine 1 Ea Device 1 Ea .ROUTE DIRECTED Commode 3-in-1 (Device) 1 Mis Mis 1 Ea .ROUTE DIRECTED [place] (Hydrocodone-Acetaminophen) 5-325 mg Tab 1-2 Tab PO Q4H PRN Vitamin C (Ascorbic Acid) 1,000 Mg Tab 1,000 Mg PO DAILY Ferrex 150 (Polysaccharide Iron Complex) 150 Mg Cap 1 Cap PO MO,WE,FR Calcium Citrate-Vitamin D 315-200 Mg-Unit Tab 2 Tab PO TID Atorvastatin (Atorvastatin Calcium) 10 Mg Tab 10 Mg PO HS Allergies: Coded Allergies: Aspirin (Verified Allergy, Unknown, 08/17/16) Codeine (Verified Adverse Reaction, Severe, NAUSEA, 08/17/16) Family History Heart disease Brother had prostate cancer Social History Denies alcohol, tobacco, or illicit drug use. Physical Exam Vital Signs Vital Signs Date Time Temp Pulse Resp B/P Pulse Ox O2 Delivery O2 Flow Rate FiO2 08/18/16 00:31 98.4 85 18 122/68 95 08/17/16 20:04 84 18 122/70 96 Nasal Cannula 2 08/17/16 19:25 97.3 72 18 140/88 99 Physical Exam GENERAL: Elderly female in no acute distress. HEENT: Normocephalic, atraumatic. Pupils equal, round and reactive. Extraocular movements intact. No scleral icterus. No injection or drainage. Oropharynx is clear. Mucous membranes are moist. CARDIOVASCULAR: Regular rate and rhythm without murmurs, gallops, or rubs. RESPIRATORY: Clear to auscultation. No wheezes, rales, or rhonchi. Breathing is non-labored. GASTROINTESTINAL: Abdomen soft, non-tender, nondistended. EXTREMITIES: No lower extremity edema. No calf tenderness. PSYCH: Alert and oriented x 3. Laboratory Laboratory Tests Test 08/17/16 08/17/16 08/17/16 19:35 20:42 22:45 White Blood Count 7.9 Red Blood Count 3.37 Hemoglobin 10.0 Hematocrit 33.2 Mean Corpuscular Volume 98.6 Mean Corpuscular Hemoglobin 29.7 Mean Corpuscular Hemoglobin 30.1 Concent Red Cell Distribution Width 14.3 Platelet Count 355 Mean Platelet Volume 7.6 Neutrophils (%) (Auto) 74.1 Lymphocytes (%) (Auto) 15.9 Monocytes (%) (Auto) 6.3 Eosinophils (%) (Auto) 2.8 Basophils (%) (Auto) 0.9 Neutrophils # (Auto) 5.9 Lymphocytes # (Auto) 1.3 Monocytes # (Auto) 0.5 Eosinophils # (Auto) 0.2 Basophils # (Auto) 0.1 CBC Comment DIFF FINAL Differential Comment Sodium Level 141 Potassium Level 4.9 Chloride Level 108 Carbon Dioxide Level 25.9 Anion Gap 7 Blood Urea Nitrogen 26 Creatinine 0.66 Estimat Glomerular Filtration 87 Rate Random Glucose 114 Calcium Level 8.7 Total Bilirubin 0.4 Aspartate Amino Transf 56 (AST/SGOT) Alanine Aminotransferase 27 (ALT/SGPT) Alkaline Phosphatase 59 Total Protein 6.3 Albumin 2.7 Lipase 53 Prothrombin Time 12.1 Prothromb Time International 1.1 Ratio Activated Partial 27.1 Thromboplast Time Blood Type A POSITIVE Antibody Screen NEGATIVE Urine Color YELLOW Urine Turbidity CLEAR Urine pH 6.0 Urine Specific [place] 1.017 Urine Protein NEG Urine Glucose (UA) NEG Urine Ketones 10 Urine Occult Blood NEG Urine Nitrite NEG Urine Bilirubin NEG Urine Urobilinogen LESS THAN 2.0 Urine Leukocyte Esterase MOD Urine RBC 1 Urine WBC 4 Urine Squamous Epithelial 2 Cells Urine Transitional Epithelial 1 Cells Urine Mucus FEW Microscopic Urinalysis Comment CULT NOT INDICATED Result Diagram: 08/17/16193408/17/161934 Assessment and Plan Assessment and Plan 1. GI bleed, hematemesis: Monitor H&H. Transfuse if necessary. Consult gastroenterology. Continue Protonix. Hold anticoagulation. 2. Hyperlipidemia: Continue statin. 3. Osteoarthritis: Status post right total knee replacement last month. 4. DVT prophylaxis: SCDs, SCOOTER hose. Avoid chemical prophylaxis secondary to bleeding. Problem Qualifiers (1) GI bleed: Qualified Code: K92.2 - Gastrointestinal hemorrhage, unspecified gastrointestinal hemorrhage type Greg Rodriguez MD Aug 18, 2016 04:16
[2016-08-18 05:14] LABS: AUTOMATED NEUTROPHIL # 3.5 TH/MM3 (1.8-7.7); BASOPHIL # 0.1 TH/MM3 (0-0.2); BASOPHIL % 0.9 % (0.0-2.0); EOSINOPHIL # 0.2 TH/MM3 (0-0.4); EOSINOPHIL % 3.3 % (0.0-4.0); HEMATOCRIT 24.4 % (35.0-46.0); HEMO FLAGS DIFF FINAL; LYMPH % 35.2 % (9.0-44.0); LYMPHOCYTE # 2.3 TH/MM3 (1.0-4.8); MEAN CELL VOLUME 96.7 FL (80.0-100.0); MEAN CORPUSCULAR HEMOGLOBIN 33.1 PG (27.0-34.0); MEAN CORPUSCULAR HGB CONC 34.2 % (32.0-36.0); MONO % 8.1 % (0.0-8.0); NEUT % 52.5 % (16.0-70.0); PLATELET COUNT 344 TH/MM3 (150-450); RED BLOOD COUNT 2.52 MIL/MM3 (4.00-5.30); RED CELL DISTRIBUTION WIDTH 13.8 % (11.6-17.2); WHITE BLOOD COUNT 6.7 TH/MM3 (4.0-11.0)
[2016-08-18 05:19] LABS: BICARBONATE 25.4 MEQ/L (21.0-32.0); POTASSIUM 4.4 MEQ/L (3.5-5.1)
[2016-08-18] MEDS ORDERED: PANTOPRAZOLE SODIUM 40 MG VIAL IV PUSH SCH (06:30)
[2016-08-18] MEDS ORDERED: ACETAMINOPHEN/HYDROcodone 325 MG/5 MG TAB PO PRN (06:30)
[2016-08-18] MEDS: SODIUM CHLORIDE 0.9% FLUSH 5 ML FLUSH IVF PRN (06:34)
[2016-08-18] MEDS ORDERED: ASCORBIC ACID 500 MG TAB PO SCH (09:00)
--- NOTE | 2016-08-18 09:02 | PD.CONS ---
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 She presented to the emergency department with complaints of vomiting dark maroon colored emesis three times yesterday. She reports having epigastric pain prior to vomiting. Denies any dark stools, no blood in stools and no diarrhea. Rectal exam on admission showed Heme positive stools.She had a right knee replacement done 07/29 and was on Lovenox injections 40 mg sub q daily, last dose was around 9 am yesterday. Denies any history of GI bleeding in the past. Last EGD was years ago , she does not remember what the results were and last colonoscopy was 05/2015 in [place] and was normal. H&H has dropped from 10.0/33.2 to 8.3/24.4. Abdominal xray was unremarkable. Has mild epigastric tenderness today, denies nausea, did not sleep well secondary to knee pain. (Laxmi Montemayor) PFSH Past Medical History Osteoarthritis Hyperlipidemia History of breast cancer Obesity Diverticulosis Past Surgical History Gastric bypass Umbilical hernia repair Right foot surgery Exploratory laparotomy for ruptured ovarian cyst Left breast lumpectomy Right total knee replacement, July 2016 (Laxmi Montemayor) Coded Allergies: Aspirin (Verified Allergy, Unknown, 08/17/16) Codeine (Verified Adverse Reaction, Severe, NAUSEA, 08/17/16) Medications Reported Meds & Active Scripts Active Lovenox Inj (Enoxaparin Sodium) 40 Mg/0.4 Ml Syr 40 Mg SQ DAILY CPM-Continuous Passive Motion Machine 1 Ea Device 1 Ea .ROUTE DIRECTED Commode 3-in-1 (Device) 1 Mis Mis 1 Ea .ROUTE DIRECTED [place] (Hydrocodone-Acetaminophen) 5-325 mg Tab 1-2 Tab PO Q4H PRN Reported Vitamin C (Ascorbic Acid) 1,000 Mg Tab 1,000 Mg PO DAILY Ferrex 150 (Polysaccharide Iron Complex) 150 Mg Cap 1 Cap PO MO,WE,FR Calcium Citrate-Vitamin D 315-200 Mg-Unit Tab 2 Tab PO TID Atorvastatin (Atorvastatin Calcium) 10 Mg Tab 10 Mg PO HS Family History Heart disease Brother had prostate cancer Social History Denies alcohol, tobacco, or illicit drug use. (Laxmi Montemayor) Review of Systems Gastrointestinal: COMPLAINS OF: Hematemesis (Laxmi Montemayor) GI Exam Vitals I&O Vital Signs Date Time Temp Pulse Resp B/P Pulse Ox O2 Delivery O2 Flow Rate FiO2 08/18/16 08:13 97.9 80 18 114/57 96 08/18/16 04:35 98.1 78 20 128/60 97 08/18/16 00:31 98.4 85 18 122/68 95 08/17/16 20:04 84 18 122/70 96 Nasal Cannula 2 08/17/16 19:25 97.3 72 18 140/88 99 I/O 08/17/16 08/17/16 08/17/16 08/18/16 08/18/16 08/18/16 07:00 15:00 23:00 07:00 15:00 23:00 Intake Total 80 ml Balance 80 ml Intake Oral 30 ml IV Total 50 ml # Voids 1 # Bowel Movements 1 Laboratory Test 08/17/16 08/17/16 08/17/16 08/18/16 19:35 20:42 22:45 04:35 White Blood Count 7.9 TH/MM3 6.7 TH/MM3 Red Blood Count 3.37 MIL/MM3 2.52 MIL/MM3 Hemoglobin 10.0 GM/DL 8.3 GM/DL Hematocrit 33.2 % 24.4 % Mean Corpuscular Volume 98.6 FL 96.7 FL Mean Corpuscular Hemoglobin 29.7 PG 33.1 PG Mean Corpuscular Hemoglobin 30.1 % 34.2 % Concent Red Cell Distribution Width 14.3 % 13.8 % Platelet Count 355 TH/MM3 344 TH/MM3 Mean Platelet Volume 7.6 FL 7.4 FL Neutrophils (%) (Auto) 74.1 % 52.5 % Lymphocytes (%) (Auto) 15.9 % 35.2 % Monocytes (%) (Auto) 6.3 % 8.1 % Eosinophils (%) (Auto) 2.8 % 3.3 % Basophils (%) (Auto) 0.9 % 0.9 % Neutrophils # (Auto) 5.9 TH/MM3 3.5 TH/MM3 Lymphocytes # (Auto) 1.3 TH/MM3 2.3 TH/MM3 Monocytes # (Auto) 0.5 TH/MM3 0.5 TH/MM3 Eosinophils # (Auto) 0.2 TH/MM3 0.2 TH/MM3 Basophils # (Auto) 0.1 TH/MM3 0.1 TH/MM3 CBC Comment DIFF FINAL DIFF FINAL Differential Comment Sodium Level 141 MEQ/L 143 MEQ/L Potassium Level 4.9 MEQ/L 4.4 MEQ/L Chloride Level 108 MEQ/L 109 MEQ/L Carbon Dioxide Level 25.9 MEQ/L 25.4 MEQ/L Anion Gap 7 MEQ/L 9 MEQ/L Blood Urea Nitrogen 26 MG/DL 29 MG/DL Creatinine 0.66 MG/DL 0.64 MG/DL Estimat Glomerular Filtration 87 ML/MIN 90 ML/MIN Rate Random Glucose 114 MG/DL 100 MG/DL Calcium Level 8.7 MG/DL 8.4 MG/DL Total Bilirubin 0.4 MG/DL Aspartate Amino Transf 56 U/L (AST/SGOT) Alanine Aminotransferase 27 U/L (ALT/SGPT) Alkaline Phosphatase 59 U/L Total Protein 6.3 GM/DL Albumin 2.7 GM/DL Lipase 53 U/L Prothrombin Time 12.1 SEC Prothromb Time International 1.1 RATIO Ratio Activated Partial 27.1 SEC Thromboplast Time Blood Type A POSITIVE Antibody Screen NEGATIVE Urine Color YELLOW Urine Turbidity CLEAR Urine pH 6.0 Urine Specific [place] 1.017 Urine Protein NEG mg/dL Urine Glucose (UA) NEG mg/dL Urine Ketones 10 mg/dL Urine Occult Blood NEG Urine Nitrite NEG Urine Bilirubin NEG Urine Urobilinogen LESS THAN 2.0 MG/DL Urine Leukocyte Esterase MOD Urine RBC 1 /hpf Urine WBC 4 /hpf Urine Squamous Epithelial 2 /hpf Cells Urine Transitional Epithelial 1 /hpf Cells Urine Mucus FEW /lpf Microscopic Urinalysis Comment CULT NOT INDICATED Physical Examination HEENT: Pupils round and reactive to light; normocephalic; atraumatic; no jaundice. Throat is clear. NECK: Neck is supple, no JVD, no lymphadenopathy. CHEST: Chest is clear to auscultation and percussion. CARDIAC: Regular rate and rhythm with no murmur gallop or rubs. ABDOMEN: Soft, nondistended, tender epigastric area; no hepatosplenomegaly; bowel sounds are present in all four quadrants. EXTREMITIES: No clubbing, cyanosis, edema right knee, incision well approximated , no redness noted SKIN: Normal; no rash; no jaundice. PATIENT SERVICES MANAGER: No focal deficits; alert and oriented times three. (Laxmi Montemayor) Assessment and Plan Assessment: (1) GI bleed (2) Acute blood loss anemia Plan This is a pleasant 76 year old female who presented with vomiting blood which started yesterday and associated epigastric pain, she had a recent knee surgery in July was on Lovenox 40 mg sub q daily with last dose yesterday around 9 am. She is NPO. Hgb dropped from 10.0 to 8.3 today. Abdominal xray was unremarkable. Plan -Continue NPO -Obtain consent for EGD today -EGD today -Continue Protonix -Follow serial H&H, transfuse PRBC's prn to keep Hgb > 7.0 -Hold Lovenox -Supportive care Patient was seen and examined by Dr. Roach and myself this note is written on his behalf. (Laxmi Montemayor) Physician Comments Seen and examined with COMMISSIONED POLICE OFFICER< egd planned for today. Monitor labs. Protonix ivp. Thank you (Paolo Roach MD) Problem Qualifiers (1) GI bleed: Qualified Code: K92.2 - Gastrointestinal hemorrhage, unspecified gastrointestinal hemorrhage type Laxmi Montemayor Aug 18, 2016 09:02 Paolo Roach MD Aug 18, 2016 12:05
[2016-08-18] MEDS ORDERED: PROPOFOL 200 MG/20 ML AMP IV ONE (11:18)
--- NOTE | 2016-08-18 11:30 | GIPROC ---
[facility] [address] [facility]. [facility], [address] EGD PROCEDURE REPORT EXAM DATE: 08/18/2016 PATIENT NAME: Nathaly Anderson MR #: [id number] BIRTHDATE: 1940 ATTENDING: Paolo Roach MD ORDER #: [id number] BOX MACHINE OPERATOR: Barbara Zavaleta and Mariano Sánchez STATUS: inpatient INDICATIONS: The patient is a 76 yr old female here for an EGD due to melena PROCEDURE PERFORMED: EGD w/ biopsy MEDICATIONS: None and Per Anesthesia. TOPICAL ANESTHETIC: CONSENT: The patient understands the risks and benefits of the procedure and understands that these risks include, but are not limited to: sedation, allergic reaction, infection, perforation and/or bleeding. Alternative means of evaluation and treatment include, among others: physical exam, x-rays, and/or surgical intervention. The patient elects to proceed with this endoscopic procedure. medical equipment was checked for proper function. Hand hygiene and appropriate measures for infection prevention was taken. After the risks, benefits and alternatives of the procedure were thoroughly explained, Informed consent was verified, confirmed and timeout was successfully executed by the treatment team. The patient was anesthetized with topical anesthesia and the Pentax [id number] endoscope was introduced through the mouth and advanced to the second portion of the duodenum. Retroflexed views revealed no abnormalities The gastroscope was then slowly withdrawn and removed. STOMACH: Anastomosis. A biopsy was performed using cold forceps. Sample sent for histology. DUODENUM: Three non-bleeding ranging between 5-9mm in size non-bleeding, shallow and clean-based ulcers were found in the mikki limb. ADVERSE EVENTS: There were no complications. IMPRESSIONS: 1. Anastomosis 2. Three non-bleeding ranging between 5-9mm in size ulcers were found in the mikki limb 3. Retroflexed views revealed no abnormalities RECOMMENDATIONS: 1. Await biopsy results. Biopsy results will not be ready for 7-10 days. If you don't hear from us in two weeks, call our office for biopsy results. 2. Anti-reflux regimen 3. Continue PPI 4. Avoid NSAIDS PATIENT CONDITION: stable DISPOSITION: Inpatient REPEAT EXAM: Return 4 weeks EGD pending biopsy results Paolo Roach MD eSigned: Paolo Roach MD 08/18/2016 11:30 AM cc: PATIENT NAME: Nathaly Anderson MR#: [id number]
[2016-08-18] MEDS: CALCIUM/VITAMIN D 250 MG/125 U TAB PO SCH ×2 (13:00→13:45)
[2016-08-18 14:00] LABS: REVIEW FLAG FINAL
--- NOTE | 2016-08-18 15:01 | EKG ---
Date Performed: 08/18/2016 Time Performed: 10:08:16 PTAGE: 76 years EKG: Sinus rhythm WITH FIRST DEGREE AV BLOCK MARKED LEFT AXIS DEVIATION LEFT VENTRICULAR HYPERTROPHY AND ST-T CHANGE P OSSIBLE SEPTAL MYOCARDIAL INFARCTION POSSIBLE LATERAL MYOCARDIAL INFARCTION Compared to prior tracing no significant change ABNORMAL ECG NO PREVIOUS TRACING DOCTOR: Sin Camarena Interpretating Date/Time 08/18/2016 14:57:18
[2016-08-18] MEDS ORDERED: PROT40TA PO (15:43)
--- NOTE | 2016-08-18 15:43 | HHI.PR ---
Subjective Remarks Follow-up for hematemesis. The patient is seen after EGD today. Family at bedside. The patient feels well this time and is asking to go home. She has been ambulating with no problems. She states she is supposed to be on Lovenox for 3 more days and does not want to take it anymore. She did take some Aleve recently. She denies any dizziness. Objective Vitals Vital Signs Date Time Temp Pulse Resp B/P Pulse Ox O2 Delivery O2 Flow Rate FiO2 08/18/16 11:50 73 16 102/57 97 08/18/16 11:40 83 16 127/66 98 08/18/16 11:31 98.6 81 18 133/63 97 08/18/16 10:38 97.9 80 18 114/57 98 08/18/16 08:13 97.9 80 18 114/57 96 08/18/16 04:35 98.1 78 20 128/60 97 08/18/16 00:31 98.4 85 18 122/68 95 08/17/16 20:04 84 18 122/70 96 Nasal Cannula 2 08/17/16 19:25 97.3 72 18 140/88 99 I/O 08/17/16 08/17/16 08/17/16 08/18/16 08/18/16 08/18/16 07:00 15:00 23:00 07:00 15:00 23:00 Intake Total 80 ml 200 ml Balance 80 ml 200 ml Intake Oral 30 ml IV Total 50 ml Other 200 ml # Voids 1 # Bowel Movements 1 Result Diagram: 08/18/16 1325 08/18/16 0435 Imaging Last Impressions Abdomen X-Ray 08/17/162032 Signed Impressions: Service Date/Time: Wednesday, August 17, 2016 21:10 - CONCLUSION: Unremarkable bowel gas pattern. Lico Alex MD Objective Remarks GENERAL: Well-developed well-nourished. In no acute distress. SKIN: Warm and dry. Well-healed left knee surgical incision. HEENT: Normocephalic. Pupils equal and round. Mucous membranes pink and moist. CARDIOVASCULAR: Regular rate and rhythm. No murmur appreciated. RESPIRATORY: No accessory muscle use. Clear to auscultation. Breath sounds equal bilaterally. GASTROINTESTINAL: Abdomen soft, non-tender, nondistended. Bowel sounds x4. MUSCULOSKELETAL: No obvious deformities. No clubbing or cyanosis. No edema. NEUROLOGICAL: Awake and alert. No focal neurological deficits. Moves upper and lower extremities spontaneously. Normal speech. PSYCHIATRIC: Appropriate mood and affect; insight and judgment normal. Procedures EGD A/P Problem List: (1) GI bleed ICD Code: K92.2 Status: Acute (2) Hyperlipidemia ICD Code: E78.5 Status: Acute (3) Anemia ICD Code: D64.9 Status: Acute Assessment and Plan 76-year-old female who presented to the emergency department with complaint of vomiting blood GI bleed, hematemesis: H&H 10.0, 8.3, 8.7, stable. Consulted gastroenterology, performed EGD. EGD showed 3 nonbleeding ulcers in the mikki limb. Continue Protonix. Nearly done with the course of prophylactic Lovenox, will DC patient does not want to take it anymore. No NSAIDs, patient educated. Hyperlipidemia: Continue statin. Osteoarthritis: Status post right total knee replacement last month. Continue pain control with [place]. DVT prophylaxis: SCDs, SCOOTER talbert. Avoid chemical prophylaxis secondary to bleeding Written by Alexis Ansari, acting as scribe for Dr. Krihsnamurthy on 08/18/16 at 15:42. All or portions of this note were transcribed by scribe []. I, Dr. Wilfredo Krishnamurthy personally performed the history, physical exam, and medical decision making; and confirmed the accuracy of the information in the transcribed note. Authenticated by Dr. Wilfredo Krishnamurthy on 08/18/16 at 16:06. Discharge Planning Okay for DC if cleared by GI, discussed with RN. Problem Qualifiers (1) GI bleed: Qualified Code: K92.2 - Gastrointestinal hemorrhage, unspecified gastrointestinal hemorrhage type Alexis Ansari Aug 18, 2016 15:42 Wilfredo Krishnamurthy MD Aug 18, 2016 16:07
[2016-08-18] MEDS ORDERED: ATORVASTATIN 10 MG TAB PO SCH (21:00)
== END 2016-08-18 18:43 | disposition home or self-care (01) ==
LOC: NEPE 18:57 → NEDA 22:25 → NEPFCDU 08-18 00:13
PROVIDERS: ADMIT Internal Medicine; ATTEND Internal Medicine
DX: K92.2 Gastrointestinal hemorrhage, unspecified (principal); Z96.651 Presence of right artificial knee joint; K59.00 Constipation, unspecified; Z85.3 Personal history of malignant neoplasm of breast; M25.561 Pain in right knee; M25.562 Pain in left knee; D62 Acute posthemorrhagic anemia; E78.5 Hyperlipidemia, unspecified; E66.9 Obesity, unspecified; Z79.899 Other long term (current) drug therapy; K92.1 Melena
CPT/HCPCS: 00740; 43239; 74020; 80048; 80053; 81001; 83690; 85014; 85018; 85025; 85610; 85730; 86850; 86900; 86901; 88305; 88312; 93005; 96361; 96374; 99285; C9113; G0378; J7030

== ENCOUNTER → 2017-07-12 | Outpatient (CLI) | payer MEDICARE ==
[~2017-07-12] MED LIST changes: +CHOL1CAP34 PO; +COQ-100C5 PO; -ENOX40P SQ; +MULT-65 PO; +OMEGCAP PO; +PROT40TA PO; +VITA10004 PO; +VITA1CAP7 PO; +VITA500C18 PO; -WALKER WHEELS/F1 MIS
[2017-07-12 10:00] LABS: AUTOMATED NEUTROPHIL # 2.9 TH/MM3 (1.8-7.7); BASOPHIL # 0.1 TH/MM3 (0-0.2); BASOPHIL % 1.7 % (0.0-2.0); EOSINOPHIL # 0.2 TH/MM3 (0-0.4); EOSINOPHIL % 2.8 % (0.0-4.0); HEMATOCRIT 43.9 % (35.0-46.0); LYMPH % 35.5 % (9.0-44.0); LYMPHOCYTE # 2.1 TH/MM3 (1.0-4.8); MEAN CELL VOLUME 97.3 FL (80.0-100.0); MEAN CORPUSCULAR HEMOGLOBIN 33.3 PG (27.0-34.0); MEAN CORPUSCULAR HGB CONC 34.2 % (32.0-36.0); MEAN PLATELET VOLUME 7.8 FL (7.0-11.0); MONO % 10.7 % (0.0-8.0); MONOCYTE # 0.6 TH/MM3 (0-0.9); NEUT % 49.3 % (16.0-70.0); PLATELET COUNT 259 TH/MM3 (150-450); RED BLOOD COUNT 4.51 MIL/MM3 (4.00-5.30); RED CELL DISTRIBUTION WIDTH 14.3 % (11.6-17.2)
[2017-07-12 10:04] LABS: INTERNATIONAL NORMALIZED RATIO 1.1 RATIO
[2017-07-12 10:21] LABS: ALBUMIN 3.5 GM/DL (3.4-5.0); AST (GOT) 30 U/L (15-37); BICARBONATE 29.1 MEQ/L (21.0-32.0); BLOOD UREA NITROGEN 23 MG/DL (7-18); CALCIUM 9.7 MG/DL (8.5-10.1); CHLORIDE 104 MEQ/L (98-107); GLOMERULAR FILTRATION RATE 70 ML/MIN (>89); GLUCOSE,FASTING 87 MG/DL (74-99); SODIUM (NA) 141 MEQ/L (136-145)
[2017-07-12 10:27] LABS: ALKALINE PHOSPHATASE 73 U/L (45-117); ALT (GPT) 31 U/L (10-53); TOTAL BILIRUBIN ADULT 0.6 MG/DL (0.2-1.0); TOTAL PROTEIN 7.2 GM/DL (6.4-8.2)
[2017-07-12 10:54] LABS: WESTERGREN SEDIMENTATION RATE 14 mm/hr (0-30)
[2017-07-12 12:25] LABS: BILIRUBIN, URINE NEG (NEG); BLOOD, URINE NEG (NEG); GLUCOSE,URINE NEG (NEG); KETONE, URINE NEG (NEG); MUCUS URINE FEW /lpf (OCC); NITRITE,URINE NEG (NEG); SQUAMOUS EPITHELIAL CELL URINE <1 /hpf (0-5); URINE COLOR YELLOW (YELLW/STRAW); URINE LEUKOCYTE ESTERASE LARGE (NEG)
--- NOTE | 2017-07-12 13:39 | RADRPT ---
EXAM DATE/TIME: 07/12/2017 11:48 [facility] COMPARISON: CHEST PA & LAT, July 10, 2016, 11:23. INDICATIONS : Evaluate for pneumonia, pneumothorax or communicable disease. Pre op left knee replacement. MEDICAL HISTORY : None. SURGICAL HISTORY : None. ENCOUNTER: Initial ACUITY: 1 day PAIN SCORE: 0/10 LOCATION: Bilateral chest FINDINGS: PA and lateral views of the chest demonstrate the lungs to be symmetrically aerated without evidence of mass, infiltrate or effusion. The cardiomediastinal contours are unremarkable. Osseous structure s are intact. CONCLUSION: No acute disease. Sherif Lu MD on July 12, 2017 at 13:37 Board Certified Radiologist. This report was verified electronically.
--- NOTE | 2017-07-12 21:56 | EKG ---
Date Performed: 07/12/2017 Time Performed: 09:39:26 PTAGE: 77 years EKG: SINUS BRADYCARDIA WITH FIRST DEGREE AV BLOCK INTRAVENTRICULAR CONDUCTION DELAY MODERATE VOL TAGE CRITERIA FOR LVH, CONSIDER NORMAL VARIANT PREVIOUS TRACING : 08/18/2016 10.08 DOCTOR: Yonny Pardo Interpretating Date/Time 07/12/2017 21:54:33
== END ==
LOC: CPRE 09:05
PROVIDERS: ATTEND Orthopaedic Surgery
DX: Z01.810 Encounter for preprocedural cardiovascular examination (principal); Z01.818 Encounter for other preprocedural examination; Z01.812 Encounter for preprocedural laboratory examination; M17.12 Unilateral primary osteoarthritis, left knee; M79.609 Pain in unspecified limb; M25.50 Pain in unspecified joint
CPT/HCPCS: 36415; 71046; 80053; 81001; 85025; 85610; 85652; 85730; 93005

== ENCOUNTER 2017-07-28 05:29 | Inpatient (IN) | payer MEDICARE ==
[~2017-07-28] VITALS: Ht 154.9 cm; Wt 84.7 kg
[~2017-07-28 05:29] MED LIST changes: -CPMMACHINE; -NORC5TAB PO; -VITA10007 PO
[2017-07-28] MEDS ORDERED: LACTATED RINGER'S 1000 ML IV PRN (06:00)
[2017-07-28] MEDS ORDERED: POVIDONE IODINE 7.5% SCRUB 118 ML BOTTLE TOPICAL SCH (06:00)
[2017-07-28] MEDS ORDERED: POVIDONE IODINE 5% (ANTISEPSIS KIT) 4 APPLICATIONS EACH NARE PRN (06:00)
[2017-07-28] MEDS ORDERED: METOPROLOL TARTRATE 25 MG TAB PO PRN (06:00)
[2017-07-28] MEDS ORDERED: DEXAMETHASONE SOD PHOS 20 MG/5 ML VIAL IV SCH (06:00)
[2017-07-28] MEDS ORDERED: ceFAZolin 2 GM PREMIX 50 ML IV SCH (06:00)
[2017-07-28] MEDS ORDERED: SODIUM CHLORID 0.9% 500 ML IV PRN (06:00)
[2017-07-28] MEDS ORDERED: CHLORHEXIDINE GLUCONATE 2 % 1 PACK (2 CLOTHS) TOPICAL PRN (06:00)
[2017-07-28] MEDS ORDERED: VANCOMYCIN 1000 MG/NS 250 ML (for <70 kg) IV SCH ×2 (06:00)
[2017-07-28] MEDS ORDERED: FAT EMULSION 20% INJ 0 ML ONE (06:31)
--- NOTE | 2017-07-28 06:49 | HHI.DCPOC ---
Discharge Care Plan Diagnosis: (1) Status post total knee replacement, left (2) Primary localized osteoarthrosis, lower leg Your Health Problems Are: Difficulty with ADL Goals to Promote Your Health * To prevent worsening of your condition and complications * To maintain your health at the optimal level Directions to Meet Your Goals Take your medications as prescribed Follow your dietary instruction Follow activity as directed Keep your appointments as scheduled Take your immunizations and boosters as scheduled If your symptoms worsen call your PCP, if no PCP go to Urgent Care Center or Emergency Room Smoking is Dangerous to Your Health. Avoid second hand smoke Call the 24-hour hour crisis hotline for domestic abuse at Chip Prieto Jul 28, 2017 06:49
--- NOTE | 2017-07-28 06:50 | HHI.FF ---
Face to Face Verification Diagnosis: (1) Status post total knee replacement, left (2) Primary localized osteoarthrosis, lower leg Physical Therapy Gait training, Transfer training, bed to chair Knee: Total knee Left LE Weight Bearing: WB as tolerated Left LE Range of Motion: Active ROM Nursing Nursing: Eugenia mc Dressing Changes: Do not change dressing Additional Instructions First dressing change in the office I have seen patient Nathaly Anderson on 07/28/17. My clinical findings support the need for the requested home health care services because: Limited ability to care for self High risk of falls I certify that my clinical findings support that this patient is homebound because: Post-op weakness Unsteady gait/balance Chip Prieto Jul 28, 2017 06:49
[2017-07-28] MEDS ORDERED: CPMMACHINE (06:51)
[2017-07-28] MEDS ORDERED: COMMODE 3-IN-11 MIS (06:51)
[2017-07-28] MEDS ORDERED: WALKER WHEELS/F1 MIS (06:51)
[2017-07-28 06:54] VITALS: PULSE 51
[2017-07-28] MEDS ORDERED: MIDAZOLAM HCL 2 MG/2 ML VIAL ONE (07:06)
[2017-07-28] MEDS ORDERED: BUPIVACAINE LIPOSOME PF 1.3% 20 ML VIAL ONE (07:06)
[2017-07-28] MEDS ORDERED: GENTAMICIN SULFATE 80 MG/2 ML VIAL ONE (07:10)
[2017-07-28] MEDS ORDERED: SODIUM CHLORIDE 0.9% IV SCH (08:30)
[2017-07-28] MEDS ORDERED: TRANEXAMIC ACID IV SCH (08:30)
[2017-07-28] MEDS: ROPIVACAINE PERI-ARTICULAR INJECTION. P-ARTICULR SCH ×10 (09:10→09:22)
--- NOTE | 2017-07-28 10:11 | PD.OP ---
cc: Souleymane Vergara MD Operative Report Date of Surgery: Jul 28, 2017 Preoperative Diagnosis: Left knee severe osteoarthritis Postoperative Diagnosis: Same Procedure: Left total knee arthroplasty Anesthesia: Spinal and adductor canal block Surgeon: Souleymane Vergara Machine Biller(s): BETH Ferrara The surgical procedure was assisted by my Advanced Registered Nurse Practitioner. My HVAC TECHNICIAN RESIDENTIAL presence was necessary throughout this case for the manipulation and positioning of the surgical extremity. My HVAC TECHNICIAN RESIDENTIAL was assisting me throughout the duration of this procedure. The skill set of an Advance Registered Nurse Practitioner was medically necessary to complete this procedure. During the surgical case, the surgical services asst was working at the back table and the Advance Registered Nurse Practitioner was directly assisting me. Operation and Findings: IMPLANTS: DePuy Attune: Patella: size 32. Femur, posterior stabilized size 5 narrow. Tibia, rotating platform size 4. Tibial insert, rotating platform, posterior stabilized size 10 mm thickness. ESTIMATED BLOOD LOSS: 100 cc TOURNIQUET TIME: 35 minutes at 250 mmHg pressure. JUSTIFICATION FOR PROCEDURE: The patient has end-stage osteoarthritis to the knee. There is an attached conservative measures pathway form in the chart that describes the nonoperative measures that were undertaken prior to consideration of surgical management. The patient understood the risks and benefits of surgical management. See my office notes for further details PROCEDURE: The patient was brought back to the operative theatre. Adequate anesthesia was obtained. The patient received intravenous vancomycin and Ancef. The lower extremity was prepped and draped in the usual sterile fashion.The leg was exsanguinated, the tourniquet was raised. A standard anterior incision was performed followed by medial parapatellar arthrotomy was performed. End-stage arthritis was identified. Osteotomy of the patella was performed. We drilled holes for the patella. We trialed the patella component. We placed an intramedullary guide into the distal femur. We ultimately resected 12 mm off of the distal femur in 5 degrees of valgus. The remnants of the ACL and PCL were resected. Osteotomy of the proximal tibia was performed, resecting 5 mm off of the medial side. This was done with 3 degrees of posterior slope using an extramedullary guide. The distal end of the guide was placed in the mid aspect of the ankle. The femur was sized, and four chamfer cuts were completed in 3 of external rotation. We then cut the central box in the distal femur to replace the PCL. We resected the remnants of the menisci and removed osteophytes off of the femur and tibia. We then trialed the knee. We punched the tibia for the keel, and then used standard technique to cement in components. Excess cement was removed. We trialed the knee again and the final polyethylene thickness was chosen to provide extension to 0 degrees, and flexion of 140 degrees to gravity. The ligaments were appropriately balanced. Lateral release was necessary to obtain excellent patellofemoral tracking. The tourniquet was released and adequate hemostasis was obtained. An intra- articular injection of a ropivacaine cocktail was injected. The posterior knee was inspected for excess cement, which was removed. The final polyethylene was put into position after thorough irrigation. We then closed deep fascia with a #2 Stratafix followed by skin with 2-0 Vicryl followed by kathy. Postop plan is to weight-bear as tolerated. DVT prophylaxis will be performed with SCDlis, SCOOTER talbert, early mobilization, and Lovenox for 3 weeks. Souleymane Vergara MD Jul 28, 2017 10:11
[2017-07-28] MEDS ORDERED: diphenhydrAMINE HCL 50 MG/ML VIAL IV PUSH PRN (10:15)
[2017-07-28] MEDS ORDERED: ZOLPIDEM TARTRATE 5 MG TAB PO PRN (10:15)
[2017-07-28] MEDS ORDERED: Post-op Orders (for Pharmacy) XX ONE (10:15)
[2017-07-28] MEDS ORDERED: ALUMINUM/MAGNESIUM/SIMETH 30 ML CUP PO PRN (10:15)
[2017-07-28] MEDS ORDERED: MAGNESIUM HYDROXIDE SUSP 30 ML CUP PO PRN (10:15)
[2017-07-28] MEDS ORDERED: ONDANSETRON HCL 4 MG/2 ML VIAL IVP PRN (10:15)
[2017-07-28] MEDS ORDERED: BISACODYL 10 MG SUPP RECTAL PRN (10:15)
[2017-07-28] MEDS ORDERED: NALOXONE HCL 0.4 MG/ML AMP IV PUSH PRN (10:15)
[2017-07-28] MEDS ORDERED: MORPHINE SULFATE 2 MG/ML INJ IV PUSH PRN (10:45)
[2017-07-28] MEDS ORDERED: HYDROmorphone HCL PF 2 MG/ML VIAL ONE ×2 (10:53→11:07)
[2017-07-28] MEDS: SODIUM CHLOR 0.9% 1000 ML INJ 1,000 ML IV SCH ×2 (11:11→21:23)
[2017-07-28] MEDS ORDERED: DO NOT ADM ANY ANTICOAGULANT DRUGS PRN (11:15)
[2017-07-28] MEDS ORDERED: BUPIVACAINE HCL PF 0.5% 30 ML VIAL ONE (11:25)
[2017-07-28] MEDS ORDERED: TRANEXAMIC ACID IV ONE (11:30)
[2017-07-28] MEDS ORDERED: SODIUM CHLORIDE 0.9% IV ONE (11:30)
--- NOTE | 2017-07-28 11:57 | RADRPT ---
EXAM DATE/TIME: 07/28/2017 11:25 [facility] COMPARISON: No previous studies available for comparison. INDICATIONS : Post-op total left knee arthroplasty. MEDICAL HISTORY : None. SURGICAL HISTORY : None. ENCOUNTER: Initial ACUITY: 1 day PAIN SCORE: 4/10 LOCATION: Left knee FINDINGS: 2 views of the left knee status post total knee arthroplasty demonstrates deep soft tissue gas anteri simon. The hardware is in normal alignment. No intra-articular radiopaque foreign bodies. CONCLUSION: Expected postsurgical changes from total knee arthroplasty. Foster Stone MD on July 28, 2017 at 11:54 Board Certified Radiologist. This report was verified electronically.
[2017-07-28] MEDS ORDERED: LIDOCAINE HCL 1% PF 5 ML SYRINGE OTHER ONE (12:00)
[2017-07-28] MEDS ORDERED: PROPOFOL 200 MG/20 ML AMP IV ONE (12:00)
[2017-07-28 14:42] VITALS: BP 130/69; PULSE 70; RESP 18; TEMP 96.3; O2SAT 93
[2017-07-28 20:00] VITALS: BP 123/66; PULSE 79; RESP 20; TEMP 96.3; O2SAT 96
[2017-07-28] MEDS: ATORVASTATIN 10 MG TAB PO SCH (21:22)
[2017-07-29] VITALS: BP 106/55; PULSE 74; RESP 20; TEMP 97.4; O2SAT 94
[2017-07-29] MEDS: ACETAMINOPHEN/HYDROcodone 325 MG/5 MG TAB PO PRN ×3 (00:16→22:47)
[2017-07-29 04:00] VITALS: BP 105/53; PULSE 55; RESP 20; TEMP 97.1; O2SAT 92
[2017-07-29 04:27] LABS: HEMATOCRIT 35.4 % (35.0-46.0); MEAN CELL VOLUME 97.7 FL (80.0-100.0); MEAN CORPUSCULAR HEMOGLOBIN 33.1 PG (27.0-34.0); MEAN CORPUSCULAR HGB CONC 33.8 % (32.0-36.0); MEAN PLATELET VOLUME 7.4 FL (7.0-11.0); PLATELET COUNT 217 TH/MM3 (150-450); RED BLOOD COUNT 3.62 MIL/MM3 (4.00-5.30); RED CELL DISTRIBUTION WIDTH 13.7 % (11.6-17.2); WHITE BLOOD COUNT 11.9 TH/MM3 (4.0-11.0)
[2017-07-29] MEDS: SODIUM CHLOR 0.9% 1000 ML INJ 1,000 ML IV SCH ×2 (05:17→16:00)
[2017-07-29 07:31] VITALS: BP 107/59; PULSE 58; RESP 19; TEMP 97.5; O2SAT 96
[2017-07-29] MEDS: POLYSACCHARIDE IRON COMPLEX 150 MG CAP PO SCH (07:39)
[2017-07-29] MEDS: PANTOPRAZOLE SOD 40 MG DELAYED RELEASE TAB PO SCH (07:39)
[2017-07-29] MEDS ORDERED: DEXAMETHASONE SOD PHOS 20 MG/5 ML VIAL IV ONE (07:45)
[2017-07-29] MEDS: ENOXAPARIN SODIUM 40 MG/0.4 ML SYRINGE SQ SCH (10:01)
[2017-07-29 11:27] VITALS: BP 116/64; PULSE 55; RESP 19; TEMP 97.8; O2SAT 95
--- NOTE | 2017-07-29 11:40 | PD.ORT.PN ---
Subjective Post Op Day #: 1 Subjective Remarks Patient is OOB in chair with no left knee pain. Patient still reports some residual effects from her femoral nerve block. She states she cannot stand because the knee rodolfo and she is unable to extend the knee when sitting. Objective Vitals Vital Signs Date Time Temp Pulse Resp B/P (MAP) Pulse Ox O2 Delivery O2 Flow Rate FiO2 07/29/17 11:27 97.8 55 19 116/64 (81) 95 07/29/17 08:50 18 07/29/17 07:31 97.5 58 19 107/59 (75) 96 07/29/17 04:00 97.1 55 20 105/53 (70) 92 07/29/17 00:00 97.4 74 20 106/55 (72) 94 07/28/17 20:00 96.3 79 20 123/66 (85) 96 07/28/17 14:42 96.3 70 18 130/69 (89) 93 07/28/17 14:00 97.6 75 20 146/70 (95) 98 Nasal Cannula 2 07/28/17 13:00 65 12 133/63 (86) 97 Nasal Cannula 2 07/28/17 12:00 75 12 134/63 (86) 95 Nasal Cannula 3 07/28/17 11:45 75 12 134/69 (90) 97 Nasal Cannula 3 I/O 07/28/17 07/28/17 07/28/17 07/29/17 07/29/17 07/29/17 07:00 15:00 23:00 07:00 15:00 23:00 Intake Total 1894 ml 730 ml 960 ml Output Total 125 ml 725 ml Balance 1769 ml 5 ml 960 ml Intake Oral 30 ml 240 ml IV Total 364 ml 730 ml 720 ml Other 1500 ml Output Urine Total 725 ml Estimated Blood Loss 125 ml # Voids 0 1 Result Diagram: 07/29/17 0351 Procedures Left TKA Objective Remarks Dressing is C/D/I. EHL/TA/G intact. 2+ pedal pulse. Calf is soft and nontender. Patient has 1/5 quad strength. Patient stood but was unable to place any weight on the LLE secondary to weakness and buckling of the left knee. + SILT. Assessment & Plan Ortho Post Op Day #: 1 Problem List: Assessment and Plan POD #1: Left TKA 1. WBAT LLE 2. Lovenox X 3 weeks for DVT prophylaxis. 3. Ice to the left knee PRN 4. Stable for discharge once femoral nerve block wears off and medically stable. Patient may need to stay an additional night. 5. F/U in the office with Dr. Vergara or BETH Alcantar as previously scheduled. Chip Prieto Jul 29, 2017 11:40
[2017-07-29 15:31] VITALS: BP 127/67; PULSE 58; RESP 19; TEMP 97.5; O2SAT 97
[2017-07-29 20:00] VITALS: BP 127/65; PULSE 64; RESP 16; TEMP 96.9; O2SAT 95
[2017-07-29] MEDS: DOCUSATE SODIUM 100 MG CAP PO SCH (20:32)
[2017-07-29] MEDS: MULTIVITAMINS/MINERALS THERAPEUTIC TAB PO SCH (20:32)
[2017-07-29] MEDS: ATORVASTATIN 10 MG TAB PO SCH (20:32)
[2017-07-30] VITALS: BP 143/78; PULSE 65; RESP 15; TEMP 96.5; O2SAT 94
[2017-07-30] MEDS: SODIUM CHLOR 0.9% 1000 ML INJ 1,000 ML IV SCH ×2 (02:00→12:00)
[2017-07-30 06:12] LABS: HEMATOCRIT 36.7 % (35.0-46.0); HEMOGLOBIN 12.5 GM/DL (11.6-15.3); MEAN CELL VOLUME 98.4 FL (80.0-100.0); MEAN CORPUSCULAR HEMOGLOBIN 33.6 PG (27.0-34.0); MEAN CORPUSCULAR HGB CONC 34.2 % (32.0-36.0); MEAN PLATELET VOLUME 7.5 FL (7.0-11.0); PLATELET COUNT 210 TH/MM3 (150-450); RED BLOOD COUNT 3.73 MIL/MM3 (4.00-5.30); RED CELL DISTRIBUTION WIDTH 13.5 % (11.6-17.2)
[2017-07-30 07:25] VITALS: BP 152/79; PULSE 63; RESP 18; TEMP 96.6; O2SAT 96
[2017-07-30] MEDS: MULTIVITAMINS/MINERALS THERAPEUTIC TAB PO SCH (08:08)
[2017-07-30] MEDS: POLYSACCHARIDE IRON COMPLEX 150 MG CAP PO SCH (08:08)
[2017-07-30] MEDS: PANTOPRAZOLE SOD 40 MG DELAYED RELEASE TAB PO SCH (08:08)
[2017-07-30] MEDS: DOCUSATE SODIUM 100 MG CAP PO SCH (08:08)
[2017-07-30] MEDS: ACETAMINOPHEN/HYDROcodone 325 MG/5 MG TAB PO PRN ×2 (08:08→13:00)
[2017-07-30] MEDS: ENOXAPARIN SODIUM 40 MG/0.4 ML SYRINGE SQ SCH (11:15)
[2017-07-30 11:23] VITALS: BP 151/77; PULSE 62; RESP 18; TEMP 96.7; O2SAT 97
--- NOTE | 2017-08-01 20:30 | HHI.DS ---
Discharge Summary Admission Date Jul 28, 2017 at 05:29 Discharge Date: Jul 30, 2017 Admitting Diagnosis Primary localized OA, lower leg Status post total knee replacement, left Diagnosis: (1) Primary localized osteoarthrosis, lower leg ICD Codes: M17.10 - Unilateral primary osteoarthritis, unspecified knee Status: Acute (2) Status post total knee replacement, left ICD Codes: Z96.652 - Presence of left artificial knee joint Procedures Left TKA Brief History This is a 77 year old female patient with severe OA of the left knee. CBC/BMP: 07/30/17 0505 Significant Findings Laboratory Tests Test 07/30/17 05:05 Red Blood Count 3.73 MIL/MM3 (4.00-5.30) PE at Discharge Dressing is C/D/I. EHL/TA/G intact. 2+ pedal pulse. Calf is soft and nontender. Patient has 1/5 quad strength. Patient stood but was unable to place any weight on the LLE secondary to weakness and buckling of the left knee. + SILT. Hospital Course The patient was admitted to the hospital for severe OA of the left knee to have a left TKA. The patient's surgery went well without complication. The patient is WBAT on the LLE. The patient was placed on a regular diet. The patient was placed on Lovenox for 3 weeks for DVT prophylaxis. The patient was discharged home with home health and will f/u in the office with Dr. Vergara or BETH Alcantar as previously scheduled. Pt Condition on Discharge: Stable Discharge Disposition: Disch w/ Home Health Serv Discharge Instructions Diet Instructions: As Tolerated, No Restrictions Activities You Can Perform: Weight Bearing as Ailyn Activities to Avoid: Strenuous Activity Follow up Referrals: Orthopedics with Souleymane Vergara MD New Medications: Commode 3-in-1 (Commode 3-in-1) 1 Mis Mis EA .XX DIRECTED, #1 0 Refills CPM-Continuous Passive Motion Machine (CPM-Continuous Passive Motion Machine) 1 Ea Device EA .XX DIRECTED, #1 0 Refills Walker with Front Wheels (Walker with Front Wheels) 1 Mis Mis EA .XX DIRECTED, #1 0 Refills Continued Medications: Ascorbic Acid ER (Vitamin C Sr) 500 Mg Caper 1000 MG PO DAILY for Nutritional Supplement, CAP 0 Refills Atorvastatin (Atorvastatin) 10 Mg Tab 10 MG PO HS for Cholesterol Management, #30 TAB 0 Refills Calcium Citrate-Vitamin D (Calcium Citrate-Vitamin D) 315-200 Mg-Unit Tab 2 TAB PO TID for Calcium Supplement, TAB 0 Refills Cholecalciferol (Vitamin D3) 50,000 Unit Cap 13304 UNITS PO Q7D for Nutritional Supplement, #30 CAP 0 Refills Cyanocobalamin (Vitamin B12 Tr) 1,000 Mcg Tab 1000 MCG PO DAILY, #1 BOTTLE Multiple Vitamin (Multi-Vitamin Daily) 1 Tab Tab 1 TAB PO DAILY for Nutritional Supplement, TAB 0 Refills Pantoprazole (Protonix) 40 Mg Tab 40 MG PO DAILY for Ulcer Prevention, #30 TAB 0 Refills Polysaccharide Iron Complex (Ferrex 150) 150 Mg Cap 1 CAP PO DAILY Vitamin A Palmitate (Vitamin A) 10,000 Unit Capsule 61522 UNIT PO DAILY Discontinued Medications: Coenzyme Q10 (Ubidecarenone) (Coq-10 Tr) 100 Mg Cap 1 CAP PO DAILY Fish Oil-Cholecalciferol ([place]-3 Fish Oil/Vitamin) 1,000-1,000 Mg Cap 1 CAP PO BID for Nutritional Supplement, CAP 0 Refills Chip Prieto Aug 01, 2017 20:30
== END 2017-07-30 13:44 | disposition home health service (06) | DRG 470 ==
LOC: HSDI 05:29 → N06A 14:26
PROVIDERS: ADMIT Orthopaedic Surgery; ATTEND Orthopaedic Surgery
PROC: 3E0T3BZ Introduction of Anesthetic Agent into Peripheral Nerves and Plexi, Percutaneous Approach (ICD-10-PCS; 2017-07-28)
PROC: 0SRD0J9 Replacement of Left Knee Joint with Synthetic Substitute, Cemented, Open Approach (ICD-10-PCS; principal; 2017-07-28 08:01)
DX: M17.12 Unilateral primary osteoarthritis, left knee (principal); E66.9 Obesity, unspecified; M25.762 Osteophyte, left knee; Z68.35 Body mass index [BMI] 35.0-35.9, adult; Z98.84 Bariatric surgery status
CPT/HCPCS: 73560; 85027; 86850; 86900; 86901; 94150; C1776; C9290; J0690; J0735; J1100; J1170; J1580; J1650; J1885; J2250; J2405; J2795; J3010; J3370; J7030; J7050; J7120; L1830